=== PATIENT | female | born 1955 | race Caucasian/White ===

== ENCOUNTER 2024-02-28 11:49 | Emergency (ER) | payer MEDICARE, SELFPAY ==
--- NOTE | ~2024-02-28 | CT_ITS ---
EXAMINATION: CT abdomen pelvis wo con DATE: 02/28/2024 13:18 INDICATION: Left abdominal pain. Nausea. TECHNIQUE: Computed tomography (CT) of the abdomen and pelvis was performed without intravenous contr ast. Automated exposure control and iterative reconstruction technique were employed. The dose-length product was 270.53 mGy-cm. COMPARISON: None. FINDINGS: The visualized portions of lung bases demonstrate mild atelectasis. No pleural effusion. Th e heart size is normal. No pericardial effusion. The liver and gallbladder are normal. There are gall stones in the gallbladder, which is normal in size. The pancreas and adrenal glands are normal. There is cortical thinning of right kidney. There is a 12 mm cyst in right kidney. There is mild left hydr onephrosis and hydroureter. There is a 3 mm stone at left ureterovesicular junction. There is diverti culosis of the colon without evidence of diverticulitis. There are no dilated loops of bowel. The farooq endix is normal. There are no pathologically enlarged lymph nodes. There is no free intraperitoneal f luid. There is severe lower lumbar spondylosis. IMPRESSION: 1. 3 mm stone at left ureterovesicular junction with mild left hydronephrosis and hydroureter. Reviewed, dictated and finalized at location A. IMPRESSION: 1. 3 mm stone at left ureterovesicular junction with mild left hydronephrosis a nd hydroureter.
[2024-02-28 11:51] VITALS: BP 151/73; PULSE 73; RESP 22; TEMP 36.2; O2SAT 98
--- NOTE | 2024-02-28 11:51 | ED.GENADULT ---
HPI - General Adult General Chief complaint: Urogenital-Female Stated complaint: burning when urinating Time Seen by Provider: 02/28/24 11:51 Source: patient and family Mode of arrival: ambulatory Limitations: no limitations History of Present Illness HPI narrative: 68-year-old white female is burning and urinary frequency since yesterday and suprapubic pain that radiates around to the her left side. She has had some nausea without vomiting she has a history of amyloidosis AFib with ablation now in sinus rhythm on Eliquis, history of stroke and CHF. Denies any back pain or pain elsewhere. Been eating and drinking fine stooling fine walking talking seeing hearing fine. Has had some swelling in her lower extremities that she normally has and she has Lasix to take as needed. Denies any other complaints Related Data Allergies Allergy/AdvReac Type Severity Reaction Status Date / Time No Known Allergies Allergy Verified 02/28/24 13:41 Review of Systems Review of Systems: All systems reviewed & are unremarkable except as noted in HPI and below Exam Narrative: White female patient with no apparent distress.? Head normocephalic, atraumatic.? Eyes conjunctiva pink sclera nonicteric.? Extraocular movements are intact.? Ears externally normal.? Oropharynx is clear with moist mucous membranes without exudates.? Neck is supple nontender no lymphadenopathy.? Back is nontender.? Lungs are clear.? Heart is regular rate and rhythm without murmurs gallops or rubs.? Chest wall nontender. Abdomen is soft and nontender no hepatosplenomegaly or masses no CVA tenderness no abdominal bruits.? Extremities no cyanosis clubbing or edema.? Skin is warm and dry without rashes or lesions.? Neurological patient is alert and oriented x4.? Motor and sensory grossly intact.? Gait is normal. Course Course Emergency Course: 1305 p.m. patient started having chilling and left lower quadrant pain radiating around her back. She would be given fentanyl 50 IV and 4 Zofr[address] IV get a CT abdomen pelvis without contrast check labs CBC CMP lipase lactic acid Vital Signs Vital signs: Vital Signs Temperature 36.2 C L 02/28/24 11:51 Pulse Rate 73 02/28/24 11:51 Respiratory Rate 22 H 02/28/24 11:51 Blood Pressure 151/73 H 02/28/24 11:51 Pulse Oximetry 98 02/28/24 11:51 Oxygen Delivery Room Air 02/28/24 11:51 Temperature 37.0 C 02/28/24 14:40 Pulse Rate 79 02/28/24 15:40 Respiratory Rate 18 02/28/24 15:40 Blood Pressure 142/52 H 02/28/24 15:40 Pulse Oximetry 98 02/28/24 15:40 Oxygen Delivery Room Air 02/28/24 15:40 Medical Decision Making MDM Narrative Medical decision making narrative: Patient was placed in Room # 2 with her son History and physical was performed. Blood and Urine culture sent UA : Urine shows +1 bacteria 11-20 rbc's only 0-3 wbc's positive nitrite +3 glucose and +2 protein CBC hemoglobin 14.6 and hematocrit 44.7 rest of CBC was normal. CMP : BUN 23 creatinine 1.8 GFR 28 Osmo 300 alk phos 210 rest of CMP was normal Lactic acid: 3.3, and lipase was normal CT abdomen pelvis without contrast:: The visualized portions of lung bases demonstrate mild atelectasis. No pleural effusion. The heart size is normal. No pericardial effusion. The liver and gallbladder are normal. There are gallstones in the gallbladder, which is normal in size. The pancreas and adrenal glands are normal. There is cortical thinning of right kidney. There is a 12 mm cyst in right kidney. There is mild left hydronephrosis and hydroureter. There is a 3 mm stone at left ureterovesicular junction. There is diverticulosis of the colon without evidence of diverticulitis. There are no dilated loops of bowel. The appendix is normal. There are no pathologically enlarged lymph nodes. There is no free intraperitoneal fluid. There is severe lower lumbar spondylosis. IMPRESSION: 1. 3 mm stone at left ureterovesicular junction with mild left h
[2024-02-28] MEDS: ONDANSETRON HCL ODT 4 MG TABLET PO (12:08)
[2024-02-28 12:19] LABS: Bilirubin Urine Negative (Negative); Blood Urine Trace-intact (Negative); Glucose Urine UA 3+ (Negative); Ketones Urine Trace (Negative); Leukocyte Esterase Ur Negative LEU/UL (Negative); Nitrate Urine Positive (Negative); Protein Urine 2+ (Negative)
[2024-02-28 12:28] LABS: Add Urine Microscopic? YES; Appearance Urine Sl Cloudy (Clear); Bacteria Urine 1+ /hpf; Color Urine Dark Orange (Yellow); Squamous Epithelial Cell Urine Many /hpf (Few); WBC Urine 0-3 /hpf (0-3)
[2024-02-28] MEDS: CIPROFLOXACIN 250 MG TABLET PO (13:34)
[2024-02-28] MEDS: fentaNYL CITRATE INJ (*CRX) 100 MCG/2 ML VIAL 50 MCG IV PUSH (13:35)
[2024-02-28] MEDS: ONDANSETRON INJ 4 MG/2 ML VIAL IV PUSH (13:35)
[2024-02-28 13:36] LABS: Hematocrit 44.7 % (35.0-42.0); Hemoglobin 14.6 g/dL (11.7-13.8); Mean Corpuscular HGB Conc 32.7 g/dL (32-36); Mean Corpuscular Hemoglobin 31.3 pg (27.0-31.0); Mean Corpuscular Volume 95.7 fL (78.0-102.0); Mean Platelet Volume 9.7 fl (9.2-11.8); Platelet Count Result 192 K/mm3 (150-420); Red Blood Count 4.67 M/mm3 (4.20-5.40); Red Cell Distribution Width 14.8 % (11.6-14.4); White Blood Count 6.7 K/mm3 (4.8-10.8)
[2024-02-28] MEDS: Please add drug allergy info to patient profile. 1 EACH XX (13:41)
[2024-02-28 13:45] VITALS: BP 132/66; PULSE 75; RESP 18; TEMP 36.9; O2SAT 97
[2024-02-28 13:52] LABS: Alanine Aminotransferase 38 U/L (14-59); Albumin Level 3.7 g/dL (3.4-5.0); Alkaline Phosphatase 210 U/L (46-116); Anion Gap 11 mmol/L (4-12); Aspartate Amino Transferase 22 U/L (15-37); Bilirubin,Total 0.6 mg/dL (0.00-1.00); Blood Urea Nitrogen 23 mg/dL (7-18); Calcium 9.1 mg/dL (8.5-10.1); Carbon Dioxide 24 mmol/L (21-32); Chloride 108 mmol/L (98-108); Estimated CRCL calculation 24 ml/min; Estimated Glomerular Filt Rate 28; Glucose 109 mg/dL (70-99); Lipase 48 U/L (16-77); Osmolality Calculated 300 mOsm/kg (285-295); Potassium 3.9 mmol/L (3.5-5.1); Sodium 143 mmol/L (136-145); Total Protein 6.9 g/dL (6.4-8.2)
[2024-02-28 13:57] LABS: Lactic Acid Reflex 3.3 mmol/L (0.4-2.0)
[2024-02-28 14:40] VITALS: BP 130/53; PULSE 84; RESP 18; TEMP 37; O2SAT 99
[2024-02-28] MEDS: SODIUM CHLORIDE 0.9% IV 1,000 ML 999 ML IV CONT (14:43)
[2024-02-28 15:40] VITALS: BP 142/52; PULSE 79; RESP 18; O2SAT 98
--- NOTE | 2024-02-28 16:18 | PC.NURSE ---
pt up ambulating to bathroom with son, ambulating back to room, pt became weak and tired, needed assistance to return to room.
--- NOTE | 2024-02-28 16:23 | PC.NURSE ---
report to Bucky, ems staff. Pt loaded to ems cot. stable and alert.
[2024-02-28 16:34] LABS: Reflex Lactic Acid Yes or No Add Lactic
--- NOTE | 2024-03-01 13:46 | PC.NURSE ---
Addendum entered by Ross Avalos RN 03/01/24 13:49: PRELIMINARY BLOOD CULTURE RESULTS X2:ISOLATE 1: GRAM NEGATIVE BACILLI ISOLATED FROM ANAEROBIC BOTTLES ONLY. MEDICAL SECRETARY RECEPTIONIST IS AWARE. Original Note: PRELIMINARY URINE CULTURE RESULTS: ISOLATE 1: 10,000-49,000 CFU/ML OF ESCHERICHIA COLI PRELIMINARY BLOOD CULTURE RESULTS X1 ISOLATE 1: GRAM NEGATIVE BACILLI ISOLATED FROM ANAEROBIC BOTTLE ONLY. RESULTS CALLED TO CHRISS JOHNSON AT [facility] ICU, SHE IS AWARE OF RESULTS.
--- NOTE | 2024-03-02 12:36 | PC.NURSE ---
NO CHANGE IN PRELIMINARY BLOOD CULTURE RESULTS, SPOKE WITH RN YESTERDAY AT [facility] AND SHE IS AWARE. FINAL URINE CULTURE RESULTS: ISOLATE 1 10, 000-49,000 CFU/ML OF ESCHERICIA COLI, NO CHANGE FROM YESTERDAY, RN AWARE AT [facility].
--- NOTE | 2024-03-07 17:54 | PC.NURSE ---
FINAL BLOOD CULTURE RESULTS: ISOLATE 1: ESCHERICHIA COLI FROM ANAEROBIC BOTTLE ONLY. PER DR MAZARIEGOS AND C&S NO CHANGE IN TX NEEDED.
== END 2024-02-28 16:33 | disposition short-term general hospital (02) ==
PROVIDERS: Emergency Provider Emergency Medicine
DX: N20.1 Calculus of ureter (principal); N39.0 Urinary tract infection, site not specified; I48.91 Unspecified atrial fibrillation; I50.9 Heart failure, unspecified
CPT/HCPCS: 36415; 74176; 80053; 81001; 83605; 83690; 85027; 87040; 87077; 87086; 87088; 87147; 87186; 96361; 96374; 96375; 99285; A9270; J2405; J3010; J7030

== ENCOUNTER 2024-02-28 18:36 | Inpatient (IN) | payer MEDICARE, SELFPAY ==
[2024-02-28] VITALS (27 sets, daily range): BP systolic 61–130; BP diastolic 26–66; PULSE 56–93; RESP 10–32; TEMP 36.7–39.6; O2SAT 94–100; BMI 26.5
--- NOTE | ~2024-02-28 | XR_ITS ---
EXAMINATION: XR chest port-a-cath/central Exam Date/Time: 02/28/2024 20:55 CDT HISTORY: line placement Comparison: None. RESULT: Lines, tubes, and devices: Right IJ central line terminating in the distal SVC. Lungs and pleura: Moderate diffuse interstitial opacities. Subsegmental left basilar airspace diseas e. Cardiomediastinal silhouette: Stable. Other: No acute osseous or upper abdominal finding. IMPRESSION: Right IJ central line terminating in the distal SVC. Moderate interstitial edema. Subsegmental basila r atelectasis/consolidation. Reviewed, dictated and finalized at location K. IMPRESSION: Right IJ central line terminating in the distal SVC. Moderate interstitial dara a. Subsegmental basilar atelectasis/consolidation.
--- NOTE | ~2024-02-28 | XR_ITS ---
EXAMINATION: XR retrograde pyelo w/stent LT DATE: 02/28/2024 20:25 CDT INDICATION: Left stone . TECHNIQUE: 12 fluoroscopic images of the left abdomen and pelvis were obtained during left retrograde pyelography with stent placement, performed by Jyoti Pichardo MD. I was not present during the procedure. Fluoroscopy exposure time was 28.2 seconds. Air Kerma 7.67 mGy. DAP [id number] mGym2. COMPARISON: CT abdomen pelvis, same date FINDINGS/IMPRESSION: Fluoroscopic documentation of left retrograde pyelography with stent placement. Please refer to the o perative note for complete procedural details . Reviewed, dictated and finalized at location K.
--- NOTE | 2024-02-28 17:47 | PM.IMHP ---
H&P: HPI History of Present Illness Date/Time: 02/28/24 17:47 Chief Complaint: Kidney stone Narrative: This is a 68-year-old female with a significant past medical history of amyloidosis, Afib s/p ablation, CVA, and CHF originally presenting to [facility] with nausea, suprapubic pain radiating around to her left side, urinary frequency, and dysuria. Workup in the hospital included an abdomen/ pelvis CT which showed a 3 mm stone at the left ureterovesicular junction with mild left hydronephrosis and hydroureter. Initial labs showed a normal white blood cell count of 6.7, hemoglobin 14.6, creatinine 1.80, EGFR 28, lactic acid 3.3, alk-phos 210, lipase 48. UA was obtained which shown slightly cloudy appearance, 2+ urine protein, 3+ urine glucose, trace urine ketone, trace urine blood, positive nitrate, 11-20 urine RBC, 1+ urine bacteria, many urine squamous epithelial cells. Urine and blood cultures were obtained and are pending. Patient was given 1 L of fluids and Cipro while in the ED at [facility]. ER physician at [place] called for direct admission to [facility] for urology workup. Urology was consulted and planned for patient to have cystoscopy in the morning initially. Upon arrival to [place], patient was noted to have a 103.2 temperature, respiratory rate 29, heart rate 103, altered mental status. Labs were redrawn and shown a creatinine of 1.80, EGFR 28, lactic acid increased to 5.0, AST 389, ALT 144, proBNP 4970. Considering patient meeting SIRS and Sepsis criteria, Urology was informed and changed plan to take patient for cystoscopy with stent placement today. Review of Systems Review of Systems: ROS unobtainable: Yes unobtainable due to mental status PMFSH Past Medical History Medical History Amyloidosis Atrial fibrillation CHF (congestive heart failure) Ureterolithiasis Surgical History Surgical History History of radiofrequency ablation procedure for cardiac arrhythmia Meds Home Medications and Allergies Allergies Allergy/AdvReac Type Severity Reaction Status Date / Time No Known Allergies Allergy Verified 02/28/24 19:19 Vital Signs Vital Signs - 24 hr 10/13/24 17:22 Temperature 102 F H Respiratory Rate 29 H Blood Pressure 130/64 Pulse Oximetry 94 H&P: Results Imaging abdomen/pelvis CT: Radiologist's impression: EXAMINATION: CT abdomen pelvis wo con DATE: 02/28/2024 13:18 INDICATION: Left abdominal pain. Nausea. TECHNIQUE: Computed tomography (CT) of the abdomen and pelvis was performed without intravenous contrast. Automated exposure control and iterative reconstruction technique were employed. The dose-length product was 270.53 mGy-cm. COMPARISON: None. FINDINGS: The visualized portions of lung bases demonstrate mild atelectasis. No pleural effusion. The heart size is normal. No pericardial effusion. The liver and gallbladder are normal. There are gallstones in the gallbladder, which is normal in size. The pancreas and adrenal glands are normal. There is cortical thinning of right kidney. There is a 12 mm cyst in right kidney. There is mild left hydronephrosis and hydroureter. There is a 3 mm stone at left ureterovesicular junction. There is diverticulosis of the colon without evidence of diverticulitis. There are no dilated loops of bowel. The appendix is normal. There are no pathologically enlarged lymph nodes. There is no free intraperitoneal fluid. There is severe lower lumbar spondylosis. IMPRESSION: 1. 3 mm stone at left ureterovesicular junction with mild left hydronephrosis and hydroureter. Reviewed, dictated and finalized at location A. Assessment and Plan Assessment and plan (1) Sepsis:
[2024-02-28] MEDS: SODIUM CHLORIDE 0.9% IV 1,000 ML 999 ML IV CONT (18:09)
[2024-02-28] MEDS: ACETAMINOPHEN 325 MG TABLET 650 MG PO (18:10)
[2024-02-28] MEDS: cefTRIAXone 2 GM/NS 100 ML 2 GM/100 ML BAG IVPB (18:10)
--- NOTE | 2024-02-28 18:29 | WPDURCON ---
Assessment and Plan Assessment and plan (1) Acute UTI: Code(s): N39.0 - Urinary tract infection, site not specified Status: Acute (2) Hydronephrosis with renal and ureteral calculous obstruction: Code(s): N13.2 - Hydronephrosis with renal and ureteral calculous obstruction Status: Acute (3) Ureterolithiasis: Code(s): N20.1 - Calculus of ureter Status: Acute Plan 68 yr old female with an obstructing left UVJ stone with hydronephrosis in setting of a fever and UTI. Discussed the options with the patient and her son. She elects to proceed to the OR tonight for cystoscopy and left stent placement. She understands the risks including but not limited to bleeding, infection, damage to the urinary tract, stent irritation, and risks of anesthesia. She understands she will need definitive stone surgery once infection resolves. Was started on rocephin here at [place]. Depending on her intraoperative and postoperative clinical status, she may require admission to the ICU. Urology Consult Note HPI Date Seen: 02/28/24 Requesting Physician: Alize Abreu MD Primary Care Provider: Koko Roque MD Consult Narrative Narrative: Lydia Gallego is a 68 year old female who presented to [place] ER with several days of UTI symptoms including dysuria and irritative voiding symptoms. She has been using over the counter AZO. She has not been on antibiotics. She has a history of amyloidosis and is currently on chemo, last dose in late 01/2024. CT at the outside ER showed 3 mm left UVJ stone with hydronephrosis. UA showed nitrites. Her wbc ct is normal but Cr was 1.8 and lactate was 3.3. She was transferred to [place] for stone management. On arrival to the floor, she spiked a fever of 102.9. No prior history of stones and no family history of stones. Review of Systems Review of Systems: All systems reviewed & are unremarkable except as noted in HPI and below [facility] Past Medical History Medical History (Updated 02/28/24 @ 18:37 by Jyoti Pichardo MD) Ureterolithiasis Meds Home Medications and Allergies Allergies Allergy/AdvReac Type Severity Reaction Status Date / Time No Known Allergies Allergy Verified 02/28/24 13:41 Vital Signs Vital Signs - 24 hr 02/28/24 17:22 02/28/24 18:10 02/28/24 18:20 Temperature 39.6 C H 39.6 C H 39.4 C H Pulse Rate 93 Respiratory Rate 29 H Blood Pressure 130/64 122/66 Pulse Oximetry 94 95 Exam Narrative: General: 68 yr old female in mild distress, A&Ox3 HEENT: Head normocephalic, atraumatic.? EOMI. Hearing intact to voice. Respirations: Even and unlabored respirations Abd: soft, ND : mild L CVAT Neuro: A&Ox3; grossly intact Results Labs 02/28/24 18:25 02/28/24 18:25 Labs: Reviewed labs from OSH. Wbc ct 6. Cr 1.8. Lactate 3.3. +UA. Pending urine and blood cultures. Imaging My impression: REviewed CT images. Has 3 mm obstructing left UVJ stone with hydronephrosis
[2024-02-28 18:32] LABS: Hematocrit 37.4 % (37.0-47.0); Hemoglobin 12.5 g/dL (12.0-15.0); Immature Platelet Fraction Pct 1.1 % (0.9-11.2); Mean Corpuscular HGB Conc 33.4 g/dl (32-36); Mean Corpuscular Hemoglobin 32.9 pg (26-34); Mean Corpuscular Volume 98.4 fl (80-100); Mean Platelet Volume 9.9 fl (7.4-10.4); Platelet Count Result 92 k/mm3 (150-375); White Blood Count 2.6 K/mm3 (4.5-10.0)
[2024-02-28 18:43] LABS: Alanine Aminotransferase 144 U/L (6-35); Albumin Level 3.1 g/dL (3.5-5.1); Alkaline Phosphatase 203 U/L (38-126); Anion Gap 11 mmol/L (4-12); Aspartate Amino Transferase 389 U/L (14-36); Bilirubin,Total 0.7 mg/dL (0.2-1.3); Blood Urea Nitrogen 23 mg/dL (7-17); Calcium 8.1 mg/dL (8.4-10.2); Carbon Dioxide 13 mmol/L (22-30); Chloride 115 mmol/L (98-107); Estimated Glomerular Filt Rate 28; Glucose 109 mg/dL (65-110); Potassium 3.5 mmol/L (3.4-5.0); Sodium 139 mmol/L (137-145)
[2024-02-28 18:52] LABS: NT Pro B Type Natriuretic Pept 4970 pg/mL (19.9-100)
[2024-02-28 19:13] LABS: Band Neutrophils Percent 11 % (0-6); Lymphocytes Absolute Manual 0.05 K/mm3 (1.1-4.5); Monocytes Absolute Manual 0.02 K/mm3 (0.1-0.90); Monocytes Percent Manual 1 % (3-9); Neutrophils Absolute Manual 2.52 K/mm3 (1.7-7.2); Neutrophils Percent Manual 86 % (46-73); Total Cells Counted 100
[2024-02-28 19:14] LABS: Anisocytosis 1+; Platelet Estimate Decreased (Adequate); Schistocytes None Seen
[2024-02-28] MEDS: LACTATED RINGERS 1,000 ML 30 ML IV CONT ×2 (19:37→20:50)
--- NOTE | 2024-02-28 19:50 | SUR.PREOP ---
1914- PT BROUGHT DOWN TO PACU AREA. PT TO GO INTO SURGERY FOR A CYSTO AND LEFT STENT PLACEMENT. PT AOX3. DENIES PAIN AT THIS TIME.TEMP: 101.6, HR: 84, BP- 84/45 (, ON ROOM AIR AT 97%. DR. ANGULO AT BESIDE. PT RESTING. 1929- WHEN BOLUS COMPLETED . STATED A 2ND BOLUS. ANESTHESIA IN PACU AND SURGEON. PT AOX3. HR- 79, RR-27. DENIES PAIN AT THIS TIME. LEFT ARM PIV WNL.
--- NOTE | 2024-02-28 20:21 | WPDANESEPPF ---
Anes - Initial Pre Proc Eval Procedure: Operation Date: 02/28/24 20:00 Proposed Procedures p Cystoscopy, Left Ureteral Stent Placement(Left) - Jyoti Pichardo MD Date/Time: 02/28/24 20:21 Surgeon: Alize Abreu MD Pre Op Diagnosis: Kidney Stone Patient Data Age: 68 Gender: F Height: Weight: Last Vital Signs Temp 38.7 C H 02/28/24 19:15 Pulse 84 02/28/24 19:15 Resp 28 H 02/28/24 19:15 BP 84/45 L 02/28/24 19:15 Pulse Ox 97 02/28/24 19:15 O2 Del Method Room Air 02/28/24 19:15 Allergies Allergy/AdvReac Type Severity Reaction Status Date / Time No Known Allergies Allergy Verified 02/28/24 19:19 Laboratory Tests 02/28/24 02/28/24 18:25 18:26 WBC 2.6 L K/mm3 (4.5-10.0) RBC 3.80 L M/mm3 (4.2-5.4) Hgb 12.5 g/dL (12.0-15.0) Hct 37.4 % (37.0-47.0) MCV 98.4 fl (80-100) MCH 32.9 pg (26-34) MCHC 33.4 g/dl (32-36) RDW 15.0 H % (11.5-14.5) Plt Count 92 L k/mm3 (150-375) MPV 9.9 fl (7.4-10.4) Immature Gran % (Auto) Not Reportable Neut % (Auto) Not Reportable Lymph % (Auto) Not Reportable [place] % (Auto) Not Reportable Eos % (Auto) Not Reportable Baso % (Auto) Not Reportable Lymph # (Auto) Not Reportable [place] # (Auto) Not Reportable Eos # (Auto) Not Reportable Baso # (Auto) Not Reportable Abs Immat Gran (auto) Not Reportable Absolute Neuts (auto) Not Reportable Absolute Nucleated RBC Not Reportable Total Counted 100 Neutrophils % (Manual) 86 H % (46-73) Band Neutrophils % 11 H % (0-6) Lymphocytes % (Manual) 2.0 L % (18-44) Monocytes % (Manual) 1 L % (3-9) Nucleated RBC % Not Reportable Abs Neuts (Manual) 2.52 K/mm3 (1.7-7.2) Abs Lymphs (Manual) 0.05 L K/mm3 (1.1-4.5) Abs Monocytes (Manual) 0.02 L K/mm3 (0.1-0.90) Platelet Estimate Decreased (Adequate) % Immature Plt Fraction 1.1 % (0.9-11.2) Anisocytosis 1+ Schistocytes None seen Sodium 139 mmol/L (137-145) Potassium 3.5 mmol/L (3.4-5.0) Chloride 115 H mmol/L (98-107) Carbon Dioxide 13 L mmol/L (22-30) Anion Gap 11 mmol/L (4-12) BUN 23 H mg/dL (7-17) Creatinine 1.80 H mg/dL (0.7-1.0) Estim Creat Clear Calc Not Reportable Estimated GFR 28 L (59 - ) Glucose 109 mg/dL (65-110) Lactic Acid 5.0 H* mmol/L (0.7-2.0) Calcium 8.1 L mg/dL (8.4-10.2) Total Bilirubin 0.7 mg/dL (0.2-1.3) AST 389 H U/L (14-36) ALT 144 H U/L (6-35) Alkaline Phosphatase 203 H U/L (38-126) NT-Pro-B Natriuret Pep 4970 H pg/mL (19.9-100) Total Protein 5.0 L g/dL (6.3-8.2) Albumin 3.1 L g/dL (3.5-5.1) Patient hx anesthesia problems: none Family hx anesthesia problems: none Results Review: All pre-operative results and documents have been reviewed as part of the pre-operative evaluation. [facility] Past Medical History Medical History Amyloidosis Atrial fibrillation CHF (congestive heart failure) Ureterolithiasis Surgical History Surgical History History of radiofrequency ablation procedure for cardiac arrhythmia Anes - Eval Final PreProcedure Day of Procedure 02/28/24 20:21 Patient weight: overweight Heart: regular rate and rhythm Lungs: clear to auscultation Airway: Mallampati scale class III Neurological: alert and oriented Last oral intake: >/= 8 hours ASA classification: IV Emergent: yes Anesthetic plan: proceed Anesthesia type and monitoring: general LMA, standard monitoring and invasive monitoring central venous line Results Review: All p
--- NOTE | 2024-02-28 20:39 | P.OP_ITS ---
Procedure Note - Detailed Date of Procedure 02/28/24 Pre-op Diagnosis obstructing left UVJ stone with urosepsis Post-op Diagnosis Same Procedure Performed cystoscopy, left retrograde pyelogram and placement of left 6fr VL stent Surgeon Jyoti Pichardo MD Anesthesia General (LMA) Indications 68 year old female transferred from [place] with obstructing 3 mm L UVJ stone with elevated lactate. On arrival, she was febrile. We discussed proceeding to the OR for cystoscopy and left stent placement with plans for definitive stone surgery once infection resolves. I was in communication with hospitalist, anesthesia, and thermal cutting machine operator about her clinical condition with plans to admit her to ICU postoperatively. Description of Procedure Patient was correctly identified and informed consent was obtained. She was brought to the OR and formal timeout was performed. General anesthesia was induced via LMA. She had already received IV antibiotics. She was placed in the dorsal lithotomy position, prepped and draped in a sterile fashion. A rigid cystoscope was inserted through the urethra into the bladder. There were no suspicious masses or tumors. The left UO was intubated with a sensor wire which was advanced up into the left kidney. An 8fr coaxial dilator was then advanced. A very gentle retrograde pyelogram was performed to delineate the renal anatomy. She was noted to have mild hydronephrosis. A 6fr variable length stent was placed under fluoroscopic guidance with a curl in the renal pelvis and another curl in the bladder. A 16 fr quinonez was placed. At this point, anesthesia took over and placed a central line. Implants 6fr VL stent Estimated Blood Loss 5 Drains Yes (16 fr quinonez) Condition Other (guarded)
--- NOTE | 2024-02-28 20:39 | SUR.OPER ---
Central line placed in OR by Dr. Khoi MDA following cystoscopy procedure by Dr. Pichardo.
--- NOTE | 2024-02-28 20:49 | WPDANESCVCPN ---
Anes - Cent Venous Cath Note Consent: I have discussed with the patient/family/POA, the non-emergent placement of a central venous catheter, including its clinical necessity/indication and associated potential risks and complications. The patient/family/POA understand(s) and acknowledge(s) the need to proceed with central venous catheter insertion as an important element of the patient's clinical management given emergent patient conditions, temporal constraints may have precluded informed consent. Time-Out: A pre-procedural Time-Out was completed immediately before starting the procedure and confirmed: Patient Identification, Site, Procedure, Patient Position and the Availability of Requisite Equipment. Procedure Note Clinical Indications: urosepsis Hand hygiene/Aseptic technique: Hand hygiene procedures were performed. Aseptic technique was maintained throughout the procedure. Sterile barrier precautions: Maximal sterile barrier precautions, including use of a cap, mask, sterile gown, sterile gloves and a sterile full body drape. Site prep: chlorhexidine Skin anesthesia: placed under general anesthesia Bangladeshi: 7 Lumen: 3 Length (cm): 15 cm Depth of insertion (cm): 14 Closure/Dressing: suture, biopatch and tegaderm Complications: None immediately noted/suspected. Chest X Ray: Ordered/review to follow. Procedure comments: placed with ultrasound guidance RI no complications cxr ordered.
[2024-02-28] MEDS: NOREPINEPHRINE 8 MG/D5W 250 ML 8 MG/250 ML BAG 3.75 MG IV CONT (21:13)
--- NOTE | 2024-02-28 22:25 | ADMGEN ---
This patient, Lydia Gallego, was admitted to Intensive Care Unit-5 at 2207. Patient/family oriented to hospital policies and general routines including ID bracelet, bed and alarms, visiting hours, pain management, procedures, bathroom and other care routines, personal items, smoking policy, room service/diet, and visiting hours. Information on how to activate the Rapid Response Team has been discussed. Patient/Family are encouraged to report perceived risks to care and to ask questions if they do not understand what they are told or what they should do.
--- NOTE | 2024-02-28 22:53 | PC.NURSE ---
Updated Dr Price that patient is on floor. Discussed fluids received to this point, current Levophed dose and vitals and that [facility] said she woulod change antibiotics to meropenem. Vaso ordered at a set rate of 0.04 till Levophed is titrated below 5 and IVP hydrocortisone ordered q8h with first dose now. Med list also verified with [place] at [facility].
[2024-02-28] MEDS: HYDROCORTISONE SODIUM SUCCINATE 100 MG/2 ML VIAL IV PUSH (23:05)
[2024-02-28] MEDS: VASOPRESSIN INJ 100 UNITS in DEXTROSE 5% 95 ML IV CONT (23:30)
[2024-02-29] VITALS (83 sets, daily range): BP systolic 82–128; BP diastolic 31–103; PULSE 62–104; RESP 0–30; TEMP 36.4–36.6; O2SAT 92–100
--- NOTE | 2024-02-29 | ECHO_ITS ---
Patient Info Name: Lydia Gallego Age: 68 years : 1955 Gender: Female Ht: 64 in Wt: 155 lbs BSA: 1.80 m2 HR: 69 bpm BP: 105 / 54 mmHg Technical Quality: Fair Exam Date: 02/29/2024 10:03 AM Exam Location: Echo Lab Patient Status: Inpatient Admit Date: 02/28/2024 Staff Ordering Physician: Simona Allen APRN Berry Grower: Bonilla Morales RDCS Attending Provider: Alize Abreu MD Referring Physician: Tiffany HERNANDES; Exam Type: CA echo doppler color flow Study Info Indications I50.20 - Unspecified systolic (congestive) heart failure Complete two-dimensional, color flow and Doppler transthoracic echocardiogram is performed. Summary 1. Complete two-dimensional, color flow and Doppler transthoracic echocardiogram is performed. 2. Left ventricular chamber dimension is normal. 3. Left ventricular systolic function is normal, estimated at 60-65%. 4. The left ventricular diastolic function is grade IV diastolic dysfunction. 5. E/e' 18 is elevated. 6. Left atrial chamber dimension is mildly enlarged. 7. There is trace aortic valve regurgitation. 8. There is moderate mitral valve regurgitation. 9. There is moderate tricuspid valve regurgitation. 10. Mild pulmonary hypertension, estimated pulmonary arterial systolic pressure is 44 mmHg. 11. There is trace pulmonic regurgitation. Left Ventricle E/e' 18 is elevated. Left ventricular chamber dimension is normal. Left ventricular systolic function is normal, estimated at 60-65%. The left ventricular diastolic function is grade IV diastolic dysfunction. Right Ventricle Right ventricular chamber dimension is normal. Right ventricular systolic function is normal. Left Atria Left atrial chamber dimension is mildly enlarged. Right Atria Right atrial chamber dimension is normal. Aortic Valve The aortic valve is trileaflet. There is no aortic valve stenosis. There is trace aortic valve regurgitation. Pulmonic Valve There is trace pulmonic regurgitation. Mitral Valve There is no mitral valve stenosis. There is moderate mitral valve regurgitation. Tricuspid Valve There is moderate tricuspid valve regurgitation. Mild pulmonary hypertension, estimated pulmonary arterial systolic pressure is 44 mmHg. Pericardium/Pleural There is no pericardial effusion. Inferior Vena Cava Normal inferior vena cava with >50% collapse upon inspiration consistent with normal right atrial pressure, 5 mmHg. Aorta The aortic root size at the sinus of Valsalva is normal. Left Ventricular Outflow Tract Name Value Normal LVOT 2D LVOT Diameter 2.0 cm LVOT Doppler LVOT Peak Gradient 4 mmHg LVOT Mean Gradient 1 mmHg LVOT VTI 15 cm LVOT VTI/AV VTI Ratio 0.9 LVOT Stroke Volume 45 ml LVOT CO 3.2 l/min LVOT CI 1.8 l/min/m2 Pulmonic Valve Name Value Normal PV Doppler --
[2024-02-29 00:13] LABS: Lactic Acid Reflex 1.9 mmol/L (0.7-2.0)
[2024-02-29] MEDS: MEROPENEM 1 GM/NS 100 ML 1 GM/100 ML BAG IVPB ×3 (00:26→23:26)
[2024-02-29 01:16] LABS: MRSA (PCR) NOT DETECTED (NOT DETECTE)
[2024-02-29 05:56] LABS: Hematocrit 35.7 % (37.0-47.0); Hemoglobin 12.1 g/dL (12.0-15.0); Immature Platelet Fraction Pct 2.8 % (0.9-11.2); Mean Corpuscular HGB Conc 33.9 g/dl (32-36); Mean Corpuscular Hemoglobin 32.8 pg (26-34); Mean Corpuscular Volume 96.7 fl (80-100); Mean Platelet Volume 9.9 fl (7.4-10.4); Platelet Count Result 95 k/mm3 (150-375); Red Blood Count 3.69 M/mm3 (4.2-5.4); Red Cell Distribution Width 15.6 % (11.5-14.5); White Blood Count 32.6 K/mm3 (4.5-10.0)
[2024-02-29 06:03] LABS: Lactic Acid Reflex 2.1 mmol/L (0.7-2.0)
[2024-02-29 06:04] LABS: Alanine Aminotransferase 135 U/L (6-35); Albumin Level 2.6 g/dL (3.5-5.1); Alkaline Phosphatase 106 U/L (38-126); Anion Gap 6 mmol/L (4-12); Aspartate Amino Transferase 180 U/L (14-36); Bilirubin,Total 0.7 mg/dL (0.2-1.3); Blood Urea Nitrogen 24 mg/dL (7-17); Calcium 7.6 mg/dL (8.4-10.2); Carbon Dioxide 20 mmol/L (22-30); Chloride 113 mmol/L (98-107); Estimated CRCL calculation 27 ml/min; Estimated Glomerular Filt Rate 32; Glucose 106 mg/dL (65-110); Potassium 3.8 mmol/L (3.4-5.0); Sodium 139 mmol/L (137-145)
[2024-02-29 06:34] LABS: Band Neutrophils Percent 21 % (0-6); Lymphocytes Absolute Manual 0.32 K/mm3 (1.1-4.5); Monocytes Absolute Manual 0.65 K/mm3 (0.1-0.90); Monocytes Percent Manual 2 % (3-9); Neutrophils Absolute Manual 31.62 K/mm3 (1.7-7.2); Neutrophils Percent Manual 76 % (46-73); Platelet Estimate Decreased (Adequate); Schistocytes None Seen; Total Cells Counted 100
[2024-02-29] MEDS: HYDROCORTISONE SODIUM SUCCINATE 100 MG/2 ML VIAL IV PUSH ×3 (06:39→21:05)
[2024-02-29] MEDS: NOREPINEPHRINE 8 MG/D5W 250 ML 8 MG/250 ML BAG 20.63 MG IV CONT (07:47)
--- NOTE | 2024-02-29 08:38 | WPDCNINT ---
Assessment and Plan Assessment and plan (1) Septic shock: Code(s): A41.9 - Sepsis, unspecified organism; R65.21 - Severe sepsis with septic shock Status: Acute Assessment and Plan: Septic shock secondary to obstructive stone and UTI Blood and urine cultures have been sent and are pending Continue meropenem to cover for possible ESBL Patient has received DC amount of IV fluids and has history of congestive heart failure and has l lower extremity edema Will hold further crystalloids Continue vasopressin and Levophed infusion to maintain mean arterial pressure Continue hydrocortisone stress dose at this time Obtain echocardiogram Will add 25% albumin (2) CHF (congestive heart failure): Code(s): I50.9 - Heart failure, unspecified Status: Acute Assessment and Plan: Patient has history of CHF. Will obtain echocardiogram. Conservative IV fluids. (3) Transaminitis: Code(s): R74.01 - Elevation of levels of liver transaminase levels Status: Acute Assessment and Plan: Secondary to shock liver. Levels are improving. Monitor. (4) Acute kidney injury: Code(s): N17.9 - Acute kidney failure, unspecified Status: Acute Assessment and Plan: Secondary to obstructive kidney stone and hydronephrosis along with sepsis and shock. Patient has received IV fluids and now off. Continue to maintain mean arterial pressure with pressors. Creatinine slightly improved to 1.6. Monitor urine output electrolytes and creatinine Check CK level Check urine electrolytes Will consult nephrology if renal function does not improve with current management. (5) Hydronephrosis with renal and ureteral calculous obstruction: Code(s): N13.2 - Hydronephrosis with renal and ureteral calculous obstruction Status: Acute Assessment and Plan: Status post stent placement (6) Metabolic acidosis: Code(s): E87.20 - Acidosis, unspecified Status: Acute Assessment and Plan: Bicarb ordered (7) Atrial fibrillation: Code(s): I48.91 - Unspecified atrial fibrillation Status: Acute Assessment and Plan: Patient has history of AFib status post ablation. Continue amiodarone and Eliquis Plan DVT prophylaxis -SCDs and Eliquis Nutrition -heart healthy diet Code Status - Full Code Total Critical Care Time - 35 minutes Due to a high probability of clinically significant, life threatening deterioration, the patient required my highest level of preparedness to intervene emergently and I personally spent this critical care time directly and personally managing the patient. This critical care time included obtaining a history; examining the patient; pulse oximetry; ordering and review of studies; arranging urgent treatment with development of a management plan; evaluation of patient's response to treatment; frequent reassessment; and discussions with other providers. It was exclusive of separately billable procedures and treating other patients and teaching time. Please see Assessment and Plan section and the rest of the note for further information on patient assessment and treatment Presales Consultant Consult Note Consult date: 02/29/24 HPI: Lydia Gallego is a 68 year old female with significant past medical history of amyloidosis, Afib s/p ablation on anticoagulation, CVA, and CHF originally presenting to [facility] yesterday with nausea, suprapubic pain radiating around to her left side, urinary frequency, and dysuria. Patient states that she has had dysuria but was mild for 2 days prior to yesterday's presentation. Yesterday after work when she went home she started having suprapubic pain which radiated to her back, pain was sharp 10/10 continuous with no aggravating or relieving factors. Patient presented to the ER. Workup in the hospital included an abdomen/ pelvis CT which showed a 3 mm stone at the left ureterovesicular junction with mild left h
[2024-02-29 08:52] LABS: Reflex Lactic Acid Yes or No Add Lactic
[2024-02-29 09:19] LABS: Creatine Kinase 119 U/L (30-135)
[2024-02-29] MEDS: ALBUMIN HUMAN 25% 25 GM/100 ML 100 ML IVPB ×4 (09:30→23:26)
[2024-02-29] MEDS: SODIUM BICARBONATE TAB 650 MG TABLET PO ×2 (09:33→17:09)
[2024-02-29] MEDS: CALCIUM/VITAMIN D 500 MG/5 MCG (200 I.U.) TABLET PO ×2 (09:34→17:09)
[2024-02-29] MEDS: APIXABAN 5 MG TABLET PO ×2 (09:34→20:08)
[2024-02-29] MEDS: AMIODARONE HCL 200 MG TABLET PO (09:34)
[2024-02-29 09:51] LABS: Lactic Acid 2.3 mmol/L (0.7-2.0)
[2024-02-29] MEDS: CALCIUM GLUC 2,000 MG/NS 100ML 2,000 MG/100 ML BAG 100 MG IVPB (10:00)
[2024-02-29 10:05] LABS: Creatinine Urine 87.3 mg/dL
[2024-02-29 10:13] LABS: Sodium Urine Random 47 meq/L
--- NOTE | 2024-02-29 11:18 | WPDUROPN2 ---
Progress Note: A&P Assessment and Plan (1) Hydronephrosis with renal and ureteral calculous obstruction: Code(s): N13.2 - Hydronephrosis with renal and ureteral calculous obstruction Status: Acute (2) Septic shock: Code(s): A41.9 - Sepsis, unspecified organism; R65.21 - Severe sepsis with septic shock Status: Acute Plan Continue ICU care. Urine and blood cultures pending. Continue broad-spectrum antibiotics. Definitive stone management once acute situation resolved Subjective Subjective Date/Time Seen: 02/29/24 11:18 Review of Systems Review of Systems: Continues to be in ICU. States she feels improved Is on pressors and broad-spectrum antibiotics Exam Narrative: Resting comfortably. Suarez catheter in place Objective Data Vital Signs Vital Signs: Vital Signs - 24 hr 02/28/24 17:22 02/28/24 18:10 02/28/24 18:20 Temperature 103.2 F H 103.2 F H 102.9 F H Pulse Rate 93 Respiratory Rate 29 H Blood Pressure 130/64 122/66 Pulse Oximetry 94 95 Oxygen Delivery Oxygen Flow Rate Fraction of Inspired Oxygen 02/28/24 19:15 02/28/24 20:20 02/28/24 21:13 Temperature 101.6 F H Pulse Rate 84 69 75 Respiratory Rate 28 H 30 H Blood Pressure 84/45 L 61/41 L 75/62 L Pulse Oximetry 97 97 Oxygen Delivery Room Air Room Air Oxygen Flow Rate Fraction of Inspired Oxygen 02/28/24 20:50 02/28/24 21:05 02/28/24 21:20 Temperature 99.2 F Pulse Rate 56 L 69 75 Respiratory Rate 10 L 25 H 21 H Blood Pressure 66/39 L 75/62 L 83/42 L Pulse Oximetry 100 100 100 Oxygen Delivery Simple Face Mask Simple Face Mask Simple Face Mask Oxygen Flow Rate 10 10 10 Fraction of Inspired Oxygen 02/28/24 21:35 02/28/24 21:50 02/28/24 21:40 Temperature Pulse Rate 75 73 70 Respiratory Rate 21 H 18 Blood Pressure 74/45 L 79/43 L 84/46 L Pulse Oximetry 100 100 Oxygen Delivery Nasal Cannula Nasal Cannula Oxygen Flow Rate 3 2 Fraction of Inspired Oxygen 02/28/24 21:50 02/28/24 21:55 02/28/24 22:00 Temperature Pulse Rate 72 72 73 Respiratory Rate Blood Pressure 79/43 L 81/44 L 77/65 L Pulse Oximetry Oxygen Delivery Oxygen Flow Rate Fraction of Inspired Oxygen 02/28/24 22:05 02/28/24 22:10 02/28/24 22:45 Temperature Pulse Rate 75 75 74 Respiratory Rate Blood Pressure 79/51 L 84/51 L 85/50 L Pulse Oximetry Oxygen Delivery Oxygen Flow Rate Fraction of Inspired Oxygen 02/28/24 22:51 02/28/24 22:30 02/28/24 23:14 Temperature 98.1 F Pulse Rate 73 74 76 Respiratory Rate 19 Blood Pressure 87/45 L 86/51 L 85/40 L Pulse Oximetry 97 Oxygen Delivery Oxygen Flow Rate Fraction of Inspired Oxygen 02/28/24 23:30 02/28/24 23:31 02/29/24 00:02 Temperature Pulse Rate 76 75 72 Respiratory Rate Blood Pressure 92/51 L 92/51 L 83/45 L Pulse Oximetry Oxygen Delivery Oxygen Flow Rate Fraction of Inspired Oxygen 02/29/24 00:24 02/29/24 00:48 02/29/24 01:01 Temperature Pulse Rate 73 72 72 Respiratory Rate Blood Pressure 94/53 L 100/42 L 96/58 L Pulse Oximetry Oxygen Delivery Oxygen Flow Rate Fraction of Inspired Oxygen 02/29/24 01:24 02/29/24 00:00 02/29/24 02:00 Temperature Pulse Rate 72 71 62 Respiratory Rate Blood Pressure 92/59 L 83/45 L 94/63 L Pulse Oximetry Oxygen Delivery Oxygen Flow Rate Fraction of Inspired Oxygen 02/29/24 01:45 02/29/24 02:15 02/29/24 02:24 Temperature Pulse Rate 73 70 72 Respiratory Rate Blood Pressure 114/77 102/62 93/42 L Pulse Oximetry Oxygen Delivery Oxygen Flow Rate Fraction of Inspired Oxygen 02/28/24 22:30 02/28/24 22:45 02/28/24 22:47 Temperature Pulse Rate 74 74 75 Respiratory Rate 20 27 H 32 H Blood Pressure 86/51 L 77/57 L 85/26 L Pulse Oximetry 96 96 97 Oxygen Delivery Oxygen Flow Rate Fraction of Inspired Oxygen 02/28/24 22:48 02/15
[2024-02-29] MEDS: HYDROcodone/acetaminophen (*CRX) 5-325 MG TABLET 1 TAB PO ×2 (11:52→20:08)
--- NOTE | 2024-02-29 12:39 | P.PN_ITS ---
Progress Note: A&P Assessment and Plan (1) Sepsis: Code(s): A41.9 - Sepsis, unspecified organism Status: Acute Assessment and Plan: 02/28/24: * meeting sepsis criteria elevated lactate of 5.0, temp of 103.2?, respiratory rate of 29, tachycardia 103, known UTI, acute kidney injury, transaminitis, pancytopenia * 1 L of normal saline while in the ED at [facility] and repeated 1 L bolus upon arrival at [facility] * blood and urine cultures were obtained and are pending * patient was given a dose of Cipro while at [facility] and we switched to Rocephin 2 g here at [facility] * white blood cell count was initially 6.7 now down to 2.6 * CT of the abdomen pelvis show a 3 mm stone at the left ureterovesicular junction with mild left hydronephrosis and hydroureter * * 68 y/o female with hydronephrosis and UTI 2/2 to kidney stones, patient was seen by her urologist, was taken OR and had VL stent placed then patient went to septic shock transferred to ICU and started on some IVF as patient has history of CHF and placed her on vasopressin and Levophed to maintain mean arterial pressure, patient normally has soft BP, for UTI patient is started on broad spectrum Abx witn meropenem, will follow up on urine and blood culture, patient is clinically stable will follow the patient with the mix house tender. (2) Hydronephrosis with renal and ureteral calculous obstruction: Code(s): N13.2 - Hydronephrosis with renal and ureteral calculous obstruction Status: Acute Assessment and Plan: 02/28/24: * CT of the abdomen pelvis show a 3 mm stone at the left ureterovesicular junction with mild left hydronephrosis and hydroureter * urology consulted * Plan for cystoscopy today with stent placement to the left ureter * continue Rocephin 2 g (3) Ureterolithiasis: Code(s): N20.1 - Calculus of ureter Status: Inactive Assessment and Plan: see above (4) Acute UTI: Code(s): N39.0 - Urinary tract infection, site not specified Status: Inactive Assessment and Plan: 02/28/24: * likely secondary to obstructing kidney stone * UA showing slightly cloudy appearance, 2+ urine protein, 3+ urine glucose, trace urine ketone, trace urine blood, positive nitrate, 2.0 urine urobilinogen, 11-20 urine RBC, many urine squamous epithelial cells, 1+ urine bacteria. * Urine and blood cultures were obtained and pending * patient given a dose of Cipro at [facility] * changed to Rocephin 2 g upon arrival [facility] (5) Altered mental status: Code(s): R41.82 - Altered mental status, unspecified Status: Acute Assessment and Plan: 02/28/24: * likely secondary to obstructing kidney stone, UTI, severe sepsis * continue neuro checks (6) Acute kidney injury: Code(s): N17.9 - Acute kidney failure, unspecified Status: Acute Assessment and Plan: 02/28/24: * likely secondary to sepsis with obstructing kidney stone * creatinine 1.80, EGFR 28 * unsure baseline creatinine * continue to trend * urology consulted (7) Transaminitis: Code(s): R74.01 - Elevation of levels of liver transaminase levels Status: Acute Assessment and Plan: 02/28/24: * likely secondary to severe sepsis * AST 389, ALT 144 * total bili within range, 0.7 * continue to trend (8) Pancytopenia: Code(s): D61.818 - Other pancytopenia Status: Acute Assessment and Plan: 02/28/24: * likely due to severe sep
--- NOTE | 2024-02-29 12:39 | WPDPN ---
Progress Note: A&P Assessment and Plan (1) Sepsis: Code(s): A41.9 - Sepsis, unspecified organism Status: Acute Assessment and Plan: 02/28/24: meeting sepsis criteria elevated lactate of 5.0, temp of 103.2?, respiratory rate of 29, tachycardia 103, known UTI, acute kidney injury, transaminitis, pancytopenia 1 L of normal saline while in the ED at [facility] and repeated 1 L bolus upon arrival at [facility] blood and urine cultures were obtained and are pending patient was given a dose of Cipro while at [facility] and we switched to Rocephin 2 g here at [facility] white blood cell count was initially 6.7 now down to 2.6 CT of the abdomen pelvis show a 3 mm stone at the left ureterovesicular junction with mild left hydronephrosis and hydroureter 68 y/o female with hydronephrosis and UTI 2/2 to kidney stones, patient was seen by her urologist, was taken OR and had VL stent placed then patient went to septic shock transferred to ICU and started on some IVF as patient has history of CHF and placed her on vasopressin and Levophed to maintain mean arterial pressure, patient normally has soft BP, for UTI patient is started on broad spectrum Abx witn meropenem, will follow up on urine and blood culture, patient is clinically stable will follow the patient with the heat treat supervisor. (2) Hydronephrosis with renal and ureteral calculous obstruction: Code(s): N13.2 - Hydronephrosis with renal and ureteral calculous obstruction Status: Acute Assessment and Plan: 02/28/24: CT of the abdomen pelvis show a 3 mm stone at the left ureterovesicular junction with mild left hydronephrosis and hydroureter urology consulted Plan for cystoscopy today with stent placement to the left ureter continue Rocephin 2 g (3) Ureterolithiasis: Code(s): N20.1 - Calculus of ureter Status: Inactive Assessment and Plan: see above (4) Acute UTI: Code(s): N39.0 - Urinary tract infection, site not specified Status: Inactive Assessment and Plan: 02/28/24: likely secondary to obstructing kidney stone UA showing slightly cloudy appearance, 2+ urine protein, 3+ urine glucose, trace urine ketone, trace urine blood, positive nitrate, 2.0 urine urobilinogen, 11-20 urine RBC, many urine squamous epithelial cells, 1+ urine bacteria. Urine and blood cultures were obtained and pending patient given a dose of Cipro at [facility] changed to Rocephin 2 g upon arrival [facility] (5) Altered mental status: Code(s): R41.82 - Altered mental status, unspecified Status: Acute Assessment and Plan: 02/28/24: likely secondary to obstructing kidney stone, UTI, severe sepsis continue neuro checks (6) Acute kidney injury: Code(s): N17.9 - Acute kidney failure, unspecified Status: Acute Assessment and Plan: 02/28/24: likely secondary to sepsis with obstructing kidney stone creatinine 1.80, EGFR 28 unsure baseline creatinine continue to trend urology consulted (7) Transaminitis: Code(s): R74.01 - Elevation of levels of liver transaminase levels Status: Acute Assessment and Plan: 02/28/24: likely secondary to severe sepsis AST 389, ALT 144 total bili within range, 0.7 continue to trend (8) Pancytopenia: Code(s): D61.818 - Other pancytopenia Status: Acute Assessment and Plan: 02/28/24: likely due to severe sepsis white blood cell count 2.6, RBC 3.80, platelet count 92 continue to trend (9) CHF (congestive heart failure): Code(s): I50.9 - Heart failure, unspecified Status: Acute Assessment and Plan: 02/28/24: ProBNP 4970 No echo to review, will obtain Plan 68 y/o female with hydronephrosis and UTI 2/2 to kidney stones, patient was seen by her urologist, was taken OR and had VL stent placed then
[2024-02-29] MEDS: ATORVASTATIN 40 MG TABLET 80 MG PO (20:08)
[2024-03-01] VITALS (50 sets, daily range): BP systolic 81–113; BP diastolic 40–79; PULSE 68–90; RESP 13–29; TEMP 36.4–36.9; O2SAT 94–100
[2024-03-01 04:29] LABS: Hematocrit 30.6 % (37.0-47.0); Hemoglobin 10.2 g/dL (12.0-15.0); Immature Platelet Fraction Pct 4.5 % (0.9-11.2); Mean Corpuscular HGB Conc 33.3 g/dl (32-36); Mean Corpuscular Hemoglobin 32.2 pg (26-34); Mean Corpuscular Volume 96.5 fl (80-100); Mean Platelet Volume 10.7 fl (7.4-10.4); Platelet Count Result 45 k/mm3 (150-375); Red Blood Count 3.17 M/mm3 (4.2-5.4); White Blood Count 19.3 K/mm3 (4.5-10.0)
[2024-03-01 04:47] LABS: Alanine Aminotransferase 100 U/L (6-35); Albumin Level 3.4 g/dL (3.5-5.1); Alkaline Phosphatase 64 U/L (38-126); Anion Gap 11 mmol/L (4-12); Aspartate Amino Transferase 74 U/L (14-36); Bilirubin,Total 1.7 mg/dL (0.2-1.3); Blood Urea Nitrogen 26 mg/dL (7-17); Calcium 8.2 mg/dL (8.4-10.2); Carbon Dioxide 21 mmol/L (22-30); Chloride 110 mmol/L (98-107); Estimated CRCL calculation 36 ml/min; Estimated Glomerular Filt Rate 45; Glucose 99 mg/dL (65-110); Magnesium 1.9 mg/dL (1.6-2.3); Phosphorus 3.3 mg/dL (2.5-4.5); Potassium 3.8 mmol/L (3.4-5.0); Sodium 142 mmol/L (137-145)
[2024-03-01 04:55] LABS: Anisocytosis 1+; Band Neutrophils Percent 11 % (0-6); Lymphocytes Absolute Manual 0.19 K/mm3 (1.1-4.5); Monocytes Absolute Manual 0.19 K/mm3 (0.1-0.90); Monocytes Percent Manual 1 % (3-9); Neutrophils Absolute Manual 18.91 K/mm3 (1.7-7.2); Neutrophils Percent Manual 87 % (46-73); Platelet Estimate Decreased (Adequate); Schistocytes Rare; Total Cells Counted 100
[2024-03-01 04:56] LABS: Burr Cells 1+
[2024-03-01] MEDS: HYDROCORTISONE SODIUM SUCCINATE 100 MG/2 ML VIAL IV PUSH ×3 (06:53→21:08)
[2024-03-01] MEDS: AMIODARONE HCL 200 MG TABLET PO (08:12)
[2024-03-01] MEDS: CALCIUM/VITAMIN D 500 MG/5 MCG (200 I.U.) TABLET PO ×2 (08:12→17:14)
[2024-03-01] MEDS: HYDROcodone/acetaminophen (*CRX) 5-325 MG TABLET 1 TAB PO ×2 (08:12→21:08)
--- NOTE | 2024-03-01 09:35 | WPDUROPN2 ---
Progress Note: A&P Assessment and Plan (1) Hydronephrosis with renal and ureteral calculous obstruction: Code(s): N13.2 - Hydronephrosis with renal and ureteral calculous obstruction Status: Acute Assessment and Plan: S/p cystoscopy in the left retrograde pyelogram, and left ureteral stent placement on 02/28/2024. Will plan for definitive outpatient stone management following resolution of acute infection (2) Septic shock: Code(s): A41.9 - Sepsis, unspecified organism; R65.21 - Severe sepsis with septic shock Status: Acute Assessment and Plan: Secondary to UTI/obstruction stone. Urine culture with growth of E coli. Preliminary blood cultures with growth of Gram-negative rods. Continue broad-spectrum antibiotics while awaiting final culture results as well as ongoing ICU care. Subjective Subjective Date/Time Seen: 03/01/24 09:35 Interval history: Lydia is feeling much improved today. Endorses some mild left flank discomfort though reports significant improvement overall. Denies nausea, vomiting, fever, or chills. Tolerating her diet. No issues with Suarez catheter which is draining clear yellow urine. Review of Systems Review of Systems: All systems reviewed & are unremarkable except as noted in HPI and below Exam Narrative: General: Awake, alert, comfortable, no acute distress HEENT: Normocephalic, atraumatic, sclerae anicteric Respiratory: Normal respiratory effort, no accessory muscle use Abdomen: Nondistended, soft, nontender : Suarez catheter draining clear yellow urine Skin: Normal coloration, warm and dry Neurologic: No focal neuro deficits noted Psychiatric: Appropriate mood and affect, judgment and insight intact Objective Data Vital Signs Vital Signs: Vital Signs - 24 hr 02/29/24 10:00 02/29/24 10:00 02/29/24 10:00 Temperature Pulse Rate 74 74 74 Respiratory Rate Blood Pressure 100/31 L 100/31 L Pulse Oximetry Oxygen Delivery Oxygen Flow Rate 02/29/24 10:00 02/29/24 10:52 02/29/24 11:00 Temperature Pulse Rate 74 76 78 Respiratory Rate 21 H Blood Pressure 97/55 L 116/57 L 107/56 L Pulse Oximetry 95 Oxygen Delivery Oxygen Flow Rate 02/29/24 11:15 02/29/24 11:30 02/29/24 11:45 Temperature Pulse Rate 75 76 81 Respiratory Rate Blood Pressure 117/103 H 113/64 105/60 Pulse Oximetry Oxygen Delivery Oxygen Flow Rate 02/29/24 12:00 02/29/24 12:00 02/29/24 12:15 Temperature 97.7 F Pulse Rate 82 83 81 Respiratory Rate 18 Blood Pressure 105/60 105/60 102/52 L Pulse Oximetry 95 Oxygen Delivery Oxygen Flow Rate 02/29/24 12:31 02/29/24 12:46 02/29/24 13:00 Temperature Pulse Rate 80 82 77 Respiratory Rate Blood Pressure 108/51 L 95/75 L 102/41 L Pulse Oximetry Oxygen Delivery Oxygen Flow Rate 02/29/24 12:00 02/29/24 12:00 02/29/24 13:15 Temperature Pulse Rate 83 78 Respiratory Rate Blood Pressure 117/68 Pulse Oximetry Oxygen Delivery Room Air Oxygen Flow Rate 02/29/24 13:30 02/29/24 12:00 02/29/24 13:45 Temperature Pulse Rate 78 78 78 Respiratory Rate Blood Pressure 90/46 L 105/60 102/70 Pulse Oximetry Oxygen Delivery Oxygen Flow Rate 02/29/24 14:00 02/29/24 14:00 02/29/24 14:05 Temperature Pulse Rate 79 80 80 Respiratory Rate 27 H Blood Pressure 115/66 115/66 115/66 Pulse Oximetry 92 Oxygen Delivery Oxygen Flow Rate 02/29/24 14:00 02/29/24 14:15 02/29/24 14:30 Temperature Pulse Rate 80 87 81 Respiratory Rate Blood Pressure 128/75 109/68 Pulse Oximetry Oxygen Delivery Oxygen Flow Rate 02/29/24 14:47 02/29/24 15:00 02/29/24 15:15 Temperature Pulse Rate 78 75 78 Respiratory Rate Blood Pressure 92/51 L 93/67 L 110/63 Pulse Oximetry Oxygen Delivery Oxygen Flow Rate 02/29/24 15:30 02/29/24 15:40 02/29/24 15:45 Temperature Pu
[2024-03-01] MEDS: MEROPENEM 1 GM/NS 100 ML 1 GM/100 ML BAG IVPB ×2 (11:55→21:09)
[2024-03-01] MEDS: NOREPINEPHRINE 8 MG/D5W 250 ML 8 MG/250 ML BAG 1.88 MG IV CONT (12:04)
--- NOTE | 2024-03-01 12:23 | WPDINTPN ---
Progress Note: A&P Assessment and Plan (1) Septic shock: Code(s): A41.9 - Sepsis, unspecified organism; R65.21 - Severe sepsis with septic shock Status: Acute Assessment and Plan: Septic shock secondary to obstructive stone and UTI 02/27: Urine cultures growing E coli 02/27: Blood cultures growing Gram-negative bacilli / bottles -Continue meropenem to cover for possible ESBL -patient is adequately fluid-resuscitated, currently off all IV fluids given history of congestive heart failure, mitral valve regurgitation -off vasopressin -continue to wean Levophed to maintain MAP > 65 mmHg for adequate end organ perfusion Continue hydrocortisone stress dose at this time 02/29/2024: Echocardiogram Summary 1. Complete two-dimensional, color flow and Doppler transthoracic echocardiogram is performed. 2. Left ventricular chamber dimension is normal. 3. Left ventricular systolic function is normal, estimated at 60-65%. 4. The left ventricular diastolic function is grade IV diastolic dysfunction. 5. E/e' 18 is elevated. 6. Left atrial chamber dimension is mildly enlarged. 7. There is trace aortic valve regurgitation. 8. There is moderate mitral valve regurgitation. 9. There is moderate tricuspid valve regurgitation. 10. Mild pulmonary hypertension, estimated pulmonary arterial systolic pressure is 44 mmHg. 11. There is trace pulmonic regurgitation. (2) CHF (congestive heart failure): Qualifiers: Heart failure type: diastolic Code(s): I50.9 - Heart failure, unspecified Status: Acute Assessment and Plan: Patient has history of CHF. Echocardiogram as above. Conservative IV fluids. -grade 4 diastolic dysfunction, moderate mitral valve regurg, moderate tricuspid valve regurg, will consult Cardiology (3) Transaminitis: Code(s): R74.01 - Elevation of levels of liver transaminase levels Status: Acute Assessment and Plan: Secondary to shock liver. Levels are improving. Monitor. (4) Acute kidney injury: Code(s): N17.9 - Acute kidney failure, unspecified Status: Acute Assessment and Plan: Secondary to obstructive kidney stone and hydronephrosis along with sepsis and shock. Creatinine on admission was 1.80 Patient has received IV fluids and now off. Continue to maintain mean arterial pressure with pressors. Creatinine has improved to 1.20 Monitor urine output electrolytes and creatinine Appreciate nephrology following the patient 02/27/2025: CT scan of the abdomen and pelvis: 3 mm stone at left ureterovesicular junction with mild left hydronephrosis and hydroureter (5) Hydronephrosis with renal and ureteral calculous obstruction: Code(s): N13.2 - Hydronephrosis with renal and ureteral calculous obstruction Status: Acute Assessment and Plan: 02/27: Status post cystoscopy and left ureteral stent placement -appreciate urology following the patient (6) Metabolic acidosis: Code(s): E87.20 - Acidosis, unspecified Status: Acute Assessment and Plan: Of bicarb infusion, acidosis have resolved (7) Atrial fibrillation: Code(s): I48.91 - Unspecified atrial fibrillation Status: Acute Assessment and Plan: Patient has history of AFib status post ablation. Continue amiodarone and Eliquis Plan DVT prophylaxis -SCDs and Eliquis Nutrition -heart healthy diet Code Status - Full Code Total Critical Care Time - 33 minutes Discussed with patient and updated with her condition and plan of care. I answered all her questions Due to a high probability of clinically significant, life threatening deterioration, the patient required my highest level of preparedness to intervene emergently and I personally spent this critical care time directly and personally managing the patient. This critical care time included obtaining a history; examining the patient; pulse oximetry; ordering and review
--- NOTE | 2024-03-01 13:20 | PM.IMPN ---
Progress Note: A&P Assessment and Plan (1) Septic shock: Code(s): A41.9 - Sepsis, unspecified organism; R65.21 - Severe sepsis with septic shock Status: Acute Assessment and Plan: Patient presents with abd pain, urinary frequency, and dysuria and found to have septic shock secondary to obstructive stone and UTI. Lactic up to 5. Appropriate abx started after cultures collected. She was adequately fluid-resuscitated and started on pressors. IV fluids off due to her hx of CHF. Echo as noted below. WBC trending down (elevated WBC may be related to steroids). 02/27: Urine cultures growing E coli 02/27: Blood cultures growing Gram-negative bacilli 06/19 bottles Continue meropenem to cover for possible ESBL Off vasopressin Continue to wean Levophed to maintain MAP > 65 mmHg for adequate end organ perfusion Continue hydrocortisone stress dose at this time (2) Acute kidney injury: Code(s): N17.9 - Acute kidney failure, unspecified Status: Acute Assessment and Plan: Cr 1.8 on admission. No old labs to review. [place] ALLISON secondary to obstructive kidney stone, hydronephrosis, sepsis and shock. Patient has received IV fluids and now off. Continue to maintain mean arterial pressure with pressors. Creatinine has improved to 1.20 Monitor urine output electrolytes and creatinine Appreciate nephrology following the patient (3) Hydronephrosis with renal and ureteral calculous obstruction: Code(s): N13.2 - Hydronephrosis with renal and ureteral calculous obstruction Status: Acute Assessment and Plan: On admission, CT scan of the abdomen and pelvis showing a 3 mm stone at left ureterovesicular junction with mild left hydronephrosis and hydroureter. 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 Echo showing Normal LV size and function (EF 60-65%) with grade IV diastolic fxn, moderate MR and moderate TR with mild pHTN. Conservative IV fluids given and now off. Cardiology consulted (5) Transaminitis: Code(s): R74.01 - Elevation of levels of liver transaminase levels Status: Acute Assessment and Plan: AST and LAT mildly elevated. [place] secondary to shock liver. Levels are improving. Monitor. (6) Metabolic acidosis: Code(s): E87.20 - Acidosis, unspecified Status: Acute Assessment and Plan: Serum bicarb dropped to 13 with normal AG. Was treated with bicarb infusion Acidosis better. [place] related to ALLISON Follow (7) Atrial fibrillation: Code(s): I48.91 - Unspecified atrial fibrillation Status: Acute Assessment and Plan: Patient has history of AFib status post ablation. She maintains NSR by tele. Continue amiodarone and Eliquis (8) Thrombocytopenia: Code(s): D69.6 - Thrombocytopenia, unspecified Status: Acute Assessment and Plan: Plt count dropped to 45K. [place] related to sepsis. Not on Lovenox or Heparin. Follow Plan DVT prophylaxis -SCDs and Eliquis Nutrition -heart healthy diet Code Status - Full Code Subjective Date/time seen: 03/01/24 13:20 Interval history: 68yo female with amyloidosis, Afib s/p ablation, CVA, and CHF originally presenting to [facility] with nausea, suprapubic pain radiating around to her left side, urinary frequency, and dysuria. Assuming care. Chart reviewed. No CP or SOB. Had left flank pain but mild in nature. No back pain. Last plt count was 267K on 02/17/24 Exam Narrative: AF 97.5 89/51 76 27 95% ra Gen - NARD Neck - Rt IJ TLC secured. Chest - bibasilar crackles. CV - RRR S1/S2. Tele showing no significa
--- NOTE | 2024-03-01 13:43 | PM.CNCAR ---
Assessment and Plan Assessment and plan (1) Septic shock: Code(s): A41.9 - Sepsis, unspecified organism; R65.21 - Severe sepsis with septic shock Status: Acute Assessment and Plan: Due to obstructive stone and UTI. Management per ICU team. (2) Cardiomyopathy: Code(s): I42.9 - Cardiomyopathy, unspecified Status: Acute Assessment and Plan: Has known amyloid cardiomyopathy. At this time, patient appears fairly euvolemic. Continue to monitor volume status. Outpatient follow up with Dr. Felix. Will push her echocardiogram images from [place] onto [facility]. (3) Atrial fibrillation: Code(s): I48.91 - Unspecified atrial fibrillation Status: Acute Assessment and Plan: In sinus. Continue Amiodarone and Eliquis. Follows with [facility]. 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 CT scan showed a 3mm left UVJ stone with hydronephrosis. Lactate was elevated at 3.3. SCr elevated at 1.8. She had a documented fever of 102.9. She was transferred to [place] for Urology evaluation. She underwent cystoscopy, left retrograde pyelogram and placement of left 6F VL stent on 02/27 with Urology. She was started on vasopressors for shock and admitted to the ICU post-surgery. Urine culture growing E. coli. Blood cultures are positive for Gram negative bacilli. NT pro BNP on 02/27 4970. On review of her Epic records, her NT pro BNP on 02/16/2024 was 905. Echocardiogram this admission shows LVEF 60-65%, grade 4 diastolic dysfunction, mild enlargement of left atrium, moderate MR, moderate TR, mild pulmonary hypertension. Prior echocardiogram 06/17/2023 shows normal LV and RV size and systolic function. Mild-moderate MR. Trace TR. [facility]. Upon my evaluation, patient states she is feeling much better. Remains on Levophed. No shortness of breath, orthopnea, chest pain. Review of Systems Review of Systems: All systems reviewed & are unremarkable except as noted in HPI and below (HPI) [facility] Past Medical History Medical History Amyloidosis Atrial fibrillation Status post ablation after multiple failed cardioversion CHF (congestive heart failure) CVA (cerebral vascular accident) Ureterolithiasis Surgical History Surgical History History of radiofrequency ablation procedure for cardiac arrhythmia Social History Social History Social History: Denies smoking alcohol or drug use. She is a nurse by profession. Smoking packs per day: 0.5 Smoking cigarettes per day: 10.0 Years smoked: 5 Smoking pack-years: 2.50 Smoking status: Former smoker Tobacco type: cigarettes Second hand tobacco smoke exposure: Yes Smoking end date: 01/17/20 Alcohol intake: unknown Substance use: never Do You Feel Safe in your Home?: Yes Lack of Transportation: No Lack of Food: Never True Current Housing: Decline to Answer Concerned About Future Housing: No Difficulty Paying Gas/Electric Bills: No Difficulty Paying for Meds: No Currently Unemployed: No Education: Associate Degree Difficulty w/ Childcare or Family Care: No Spiritual care concerns: No Meds Home Me
[2024-03-01] MEDS: ATORVASTATIN 40 MG TABLET 80 MG PO (21:08)
[2024-03-02] VITALS (16 sets, daily range): BP systolic 84–116; BP diastolic 50–66; PULSE 60–80; RESP 14–28; TEMP 36.3–36.5; O2SAT 94–100
[2024-03-02] MEDS: HYDROCORTISONE SODIUM SUCCINATE 100 MG/2 ML VIAL IV PUSH ×3 (05:34→21:29)
[2024-03-02] MEDS: HYDROcodone/acetaminophen (*CRX) 5-325 MG TABLET 1 TAB PO ×3 (05:35→21:29)
[2024-03-02 06:13] LABS: Hematocrit 32.7 % (37.0-47.0); Immature Platelet Fraction Pct 7.9 % (0.9-11.2); Mean Corpuscular HGB Conc 33.6 g/dl (32-36); Mean Corpuscular Hemoglobin 32.4 pg (26-34); Mean Corpuscular Volume 96.5 fl (80-100); Mean Platelet Volume 11.4 fl (7.4-10.4); Platelet Count Result 42 k/mm3 (150-375); Red Blood Count 3.39 M/mm3 (4.2-5.4); Red Cell Distribution Width 16.1 % (11.5-14.5)
[2024-03-02 06:25] LABS: Alanine Aminotransferase 66 U/L (6-35); Albumin Level 2.9 g/dL (3.5-5.1); Alkaline Phosphatase 90 U/L (38-126); Anion Gap 6 mmol/L (4-12); Aspartate Amino Transferase 30 U/L (14-36); Bilirubin,Total 1.7 mg/dL (0.2-1.3); Blood Urea Nitrogen 30 mg/dL (7-17); Calcium 8.3 mg/dL (8.4-10.2); Carbon Dioxide 24 mmol/L (22-30); Chloride 109 mmol/L (98-107); Estimated CRCL calculation 39 ml/min; Estimated Glomerular Filt Rate 50; Glucose 100 mg/dL (65-110); Magnesium 2.2 mg/dL (1.6-2.3); Phosphorus 2.3 mg/dL (2.5-4.5); Potassium 3.4 mmol/L (3.4-5.0); Sodium 139 mmol/L (137-145)
[2024-03-02 06:58] LABS: Anisocytosis 1+; Band Neutrophils Percent 2 % (0-6); Burr Cells 1+; Lymphocytes Absolute Manual 0.78 K/mm3 (1.1-4.5); Lymphocytes Percent Manual 3 % (18-44); Monocytes Absolute Manual 0.26 K/mm3 (0.1-0.90); Monocytes Percent Manual 1 % (3-9); Neutrophils Absolute Manual 24.96 K/mm3 (1.7-7.2); Neutrophils Percent Manual 94 % (46-73); Platelet Estimate Decreased (Adequate); Schistocytes None Seen; Total Cells Counted 100
[2024-03-02] MEDS: CALCIUM/VITAMIN D 500 MG/5 MCG (200 I.U.) TABLET PO ×2 (07:59→16:58)
[2024-03-02] MEDS: AMIODARONE HCL 200 MG TABLET PO (07:59)
[2024-03-02] MEDS: POTASSIUM PHOS/SODIUM PHOS 250 MG TABLET PO (07:59)
--- NOTE | 2024-03-02 08:31 | WPDINTPN ---
Progress Note: A&P Assessment and Plan (1) Septic shock: Code(s): A41.9 - Sepsis, unspecified organism; R65.21 - Severe sepsis with septic shock Status: Acute Assessment and Plan: Septic shock secondary to obstructive stone and UTI 02/27: Urine cultures growing E coli 02/27: Blood cultures growing Gram-negative bacilli / bottles -Continue meropenem to cover for possible ESBL -patient is adequately fluid-resuscitated, currently off all IV fluids given history of congestive heart failure, mitral valve regurgitation -Off pressors, -Continue hydrocortisone stress dose at this time -will add midodrine 02/29/2024: Echocardiogram Summary 1. Complete two-dimensional, color flow and Doppler transthoracic echocardiogram is performed. 2. Left ventricular chamber dimension is normal. 3. Left ventricular systolic function is normal, estimated at 60-65%. 4. The left ventricular diastolic function is grade IV diastolic dysfunction. 5. E/e' 18 is elevated. 6. Left atrial chamber dimension is mildly enlarged. 7. There is trace aortic valve regurgitation. 8. There is moderate mitral valve regurgitation. 9. There is moderate tricuspid valve regurgitation. 10. Mild pulmonary hypertension, estimated pulmonary arterial systolic pressure is 44 mmHg. 11. There is trace pulmonic regurgitation. (2) CHF (congestive heart failure): Qualifiers: Heart failure type: diastolic Code(s): I50.9 - Heart failure, unspecified Status: Acute Assessment and Plan: Patient has history of CHF. Echocardiogram as above. Conservative IV fluids. -grade 4 diastolic dysfunction, moderate mitral valve regurg, moderate tricuspid valve regurg, -appreciate cardiology evaluation recommendation (3) Transaminitis: Code(s): R74.01 - Elevation of levels of liver transaminase levels Status: Acute Assessment and Plan: Secondary to shock liver. Levels are improving. Monitor. (4) Acute kidney injury: Code(s): N17.9 - Acute kidney failure, unspecified Status: Acute Assessment and Plan: Secondary to obstructive kidney stone and hydronephrosis along with sepsis and shock. Creatinine on admission was 1.80 Patient has received IV fluids and now off. Continue to maintain mean arterial pressure with pressors. Creatinine has improved to 1.10 -continue to monitor urine output, renal function and electrolytes Appreciate nephrology following the patient 02/27/2025: CT scan of the abdomen and pelvis: 3 mm stone at left ureterovesicular junction with mild left hydronephrosis and hydroureter (5) Hydronephrosis with renal and ureteral calculous obstruction: Code(s): N13.2 - Hydronephrosis with renal and ureteral calculous obstruction Status: Acute Assessment and Plan: 02/27: Status post cystoscopy and left ureteral stent placement -appreciate urology following the patient (6) Metabolic acidosis: Code(s): E87.20 - Acidosis, unspecified Status: Acute Assessment and Plan: Of bicarb infusion, acidosis have resolved (7) Atrial fibrillation: Code(s): I48.91 - Unspecified atrial fibrillation Status: Acute Assessment and Plan: Patient has history of AFib status post ablation. Continue amiodarone and Eliquis Plan DVT prophylaxis -SCDs and Eliquis Nutrition -heart healthy diet Code Status - Full Code PT/OT has been ordered -up in chair today Total Critical Care Time - 31 minutes Discussed with patient and updated with her condition and plan of care. I answered all her questions Patient may transfer out of the ICU if okay with hospitalist Due to a high probability of clinically significant, life threatening deterioration, the patient required my highest level of preparedness to intervene emergently and I personally spent this critical care time directly and personally managing the patient. This critical care time
[2024-03-02] MEDS: MIDODRINE HCL 10 MG TABLET PO ×3 (09:02→16:58)
--- NOTE | 2024-03-02 09:49 | WPDUROPN2 ---
Progress Note: A&P Assessment and Plan (1) Hydronephrosis with renal and ureteral calculous obstruction: Code(s): N13.2 - Hydronephrosis with renal and ureteral calculous obstruction Status: Acute Assessment and Plan: S/p cystoscopy, left retrograde pyelogram, and left ureteral stent placement on 02/28/2024. Will plan for definitive outpatient stone management following resolution of acute infection. (2) Septic shock: Code(s): A41.9 - Sepsis, unspecified organism; R65.21 - Severe sepsis with septic shock Status: Acute Assessment and Plan: Secondary to UTI/obstructing stone. Urine and blood cultures with growth of E coli. Continues on meropenem. WBC has increased to 26.0 today. Her creatinine has improved to 1.1. She remains afebrile. Continued management in ICU. Plan Okay for quinonez removal/void trial from urology standpoint anytime; can continue for accurate I&O monitoring while she remains in ICU Subjective Subjective Date/Time Seen: 03/02/24 09:49 Interval history: Lydia is feeling improved today. Her left flank pain continues to improve, states is nearly resolved at this time. Denies nausea, vomiting, fever, chills. Reports no issues with Quinonez catheter. Review of Systems Review of Systems: All systems reviewed & are unremarkable except as noted in HPI and below Exam Narrative: General: Awake, alert, comfortable, no acute distress HEENT: Normocephalic, atraumatic, sclerae anicteric Respiratory: Normal respiratory effort, no accessory muscle use Abdomen: Nondistended, soft, nontender : Quinonez catheter draining light pink blood-tinged urine Skin: Normal coloration, warm and dry Neurologic: No focal neuro deficits noted Psychiatric: Appropriate mood and affect, judgment and insight intact Objective Data Vital Signs Vital Signs: Vital Signs - 24 hr 03/01/24 10:08 03/01/24 10:00 03/01/24 10:00 Temperature Pulse Rate 73 71 71 Respiratory Rate 29 H Blood Pressure 85/56 L 86/57 L Pulse Oximetry 94 Oxygen Delivery Fraction of Inspired Oxygen 03/01/24 12:03 03/01/24 12:04 03/01/24 12:17 Temperature Pulse Rate 80 80 79 Respiratory Rate Blood Pressure 113/64 113/64 108/62 Pulse Oximetry Oxygen Delivery Fraction of Inspired Oxygen 03/01/24 12:00 03/01/24 12:00 03/01/24 12:00 Temperature 97.5 F L Pulse Rate 79 82 Respiratory Rate 27 H Blood Pressure 113/64 Pulse Oximetry 94 95 Oxygen Delivery Room Air Fraction of Inspired Oxygen 03/01/24 12:30 03/01/24 12:45 03/01/24 13:03 Temperature Pulse Rate 82 84 76 Respiratory Rate Blood Pressure 89/67 L 103/52 L 89/51 L Pulse Oximetry Oxygen Delivery Fraction of Inspired Oxygen 03/01/24 13:30 03/01/24 13:45 03/01/24 14:00 Temperature Pulse Rate 77 74 76 Respiratory Rate Blood Pressure 82/51 L 81/47 L 98/53 L Pulse Oximetry Oxygen Delivery Fraction of Inspired Oxygen 03/01/24 14:00 03/01/24 14:00 03/01/24 14:15 Temperature Pulse Rate 77 77 73 Respiratory Rate 23 H Blood Pressure 98/53 L 100/57 L Pulse Oximetry 96 Oxygen Delivery Fraction of Inspired Oxygen 03/01/24 14:30 03/01/24 14:45 03/01/24 15:01 Temperature Pulse Rate 71 72 72 Respiratory Rate Blood Pressure 98/56 L 95/61 L 104/67 Pulse Oximetry Oxygen Delivery Fraction of Inspired Oxygen 03/01/24 15:15 03/01/24 15:30 03/01/24 15:45 Temperature Pulse Rate 70 69 68 Respiratory Rate Blood Pressure 94/60 L 93/60 L 91/57 L Pulse Oximetry Oxygen Delivery Fraction of Inspired Oxygen 03/01/24 16:00 03/01/24 16:15 03/01/24 16:29 Temperature Pulse Rate 68 69 70 Respiratory Rate Blood Pressure 91/54 L 99/60 L 100/56 L Pulse Oximetry Oxygen Delivery Fraction of Inspired Oxygen 03/01/24 16:00 03/01/24 16:00 03/01/24 16:00 Temperature Pulse Rate 70 70 Respiratory
[2024-03-02] MEDS: cefTRIAXone 2 GM/NS 100 ML 2 GM/100 ML BAG IVPB (11:05)
--- NOTE | 2024-03-02 14:18 | PM.IMPN ---
Progress Note: A&P Assessment and Plan (1) Septic shock: Code(s): A41.9 - Sepsis, unspecified organism; R65.21 - Severe sepsis with septic shock Status: Acute Assessment and Plan: Patient presents with abd pain, urinary frequency, and dysuria and found to have septic shock secondary to obstructive stone and UTI BC and UC are positive for EColi Continue meropenem to cover for possible ESBL Off vasopressin Pt is on midodrine Bp running low continue to watch on the floor (2) Acute kidney injury: Code(s): N17.9 - Acute kidney failure, unspecified Status: Acute Assessment and Plan: Cr 1.8 on admission. No old labs to review. [place] ALLISON secondary to obstructive kidney stone, hydronephrosis, sepsis and shock. pt is sp fluids Creatinine has improved to 1.1 Monitor urine output electrolytes and creatinine Appreciate nephrology (3) Hydronephrosis with renal and ureteral calculous obstruction: Code(s): N13.2 - Hydronephrosis with renal and ureteral calculous obstruction Status: Acute Assessment and Plan: On admission, CT scan of the abdomen and pelvis showing a 3 mm stone at left ureterovesicular junction with mild left hydronephrosis and hydroureter. 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 Echo showing Normal LV size and function (EF 60-65%) with grade IV diastolic fxn, moderate MR and moderate TR with mild pHTN. Conservative IV fluids given and now off. Cardiology consulted (5) Transaminitis: Code(s): R74.01 - Elevation of levels of liver transaminase levels Status: Acute Assessment and Plan: AST and LAT mildly elevated. [place] secondary to shock liver. and history of amylodosis (6) Metabolic acidosis: Code(s): E87.20 - Acidosis, unspecified Status: Acute Assessment and Plan: resolved Serum bicarb dropped to 13 with normal AG. Was treated with bicarb infusion Acidosis better. relate to [place] (7) Atrial fibrillation: Code(s): I48.91 - Unspecified atrial fibrillation Status: Acute Assessment and Plan: Patient has history of AFib status post ablation. She maintains NSR by tele. Continue amiodarone and Eliquis pt sees Electrophysiology in [place] (8) Thrombocytopenia: Code(s): D69.6 - Thrombocytopenia, unspecified Status: Acute Assessment and Plan: Plt count dropped to 45K. [place] related to sepsis. Not on Lovenox or Heparin. watch plts Subjective Date/time seen: 03/02/24 14:18 Interval history: 68yo female with amyloidosis, Afib s/p ablation, CVA, and CHF originally presenting to [facility] with nausea, suprapubic pain radiating around to her left side, urinary frequency, and dysuria. Pt is sp S/p cystoscopy, left retrograde pyelogram, and left ureteral stent placement on 02/28/2024. Pt will need stone management following resolution of acute infection Continue watch wcc and cultures Pt can move out of icu off vasopressors now Bp still running low Continue midodrine on the floor encourage oral fluids Review of Systems Review of Systems: No flank pain today Bp running low normal Exam Narrative: Generally : chronically ill with crackled lips and skin and rough tongue Neck - Rt IJ TLC secured. Chest - clear CV - RRR S1/S2. Tele showing no significant dysrhythmias Abd - Soft, ND Back - no CVA tenderness. - slight pinkness to urine. Ext - trace pedal edema Neuro - Alert and appropriate Psych - Nml mood and affect Skin - Warm and dry Objective Data Vital Signs Vital Signs: Vital Signs - 24 hr
--- NOTE | 2024-03-02 17:03 | PC.NURSE ---
This patient, Lydia Gallego, was transferred to [[facility]2 ] on 03/02/24 at 1703. Personal belongings sent with patient. Report given to [ CHRISS Bernal @ [id number]]. Appropriate documentation sent with patient. Transferred delayed due to room being cleaned at the time report was given.
--- NOTE | 2024-03-02 17:17 | PC.NURSE ---
This patient, Lydia Gallego, was received from [ICU-5] on 03/02/24 at 1705. Patient/family oriented to unit policies and routines
[2024-03-02] MEDS: ATORVASTATIN 40 MG TABLET 80 MG PO (21:29)
[2024-03-03] MEDS: HYDROCORTISONE SODIUM SUCCINATE 100 MG/2 ML VIAL IV PUSH (05:49)
[2024-03-03 06:07] LABS: Alanine Aminotransferase 55 U/L (6-35); Albumin Level 2.9 g/dL (3.5-5.1); Alkaline Phosphatase 105 U/L (38-126); Anion Gap 5 mmol/L (4-12); Aspartate Amino Transferase 36 U/L (14-36); Bilirubin,Total 1.1 mg/dL (0.2-1.3); Blood Urea Nitrogen 32 mg/dL (7-17); Calcium 8.1 mg/dL (8.4-10.2); Carbon Dioxide 23 mmol/L (22-30); Chloride 109 mmol/L (98-107); Estimated CRCL calculation 42 ml/min; Estimated Glomerular Filt Rate 55; Glucose 90 mg/dL (65-110); Magnesium 2.1 mg/dL (1.6-2.3); Phosphorus 2.2 mg/dL (2.5-4.5); Potassium 3.6 mmol/L (3.4-5.0); Sodium 137 mmol/L (137-145)
[2024-03-03 06:09] LABS: Hematocrit 33.9 % (37.0-47.0); Hemoglobin 11.3 g/dL (12.0-15.0); Immature Platelet Fraction Pct 7.9 % (0.9-11.2); Mean Corpuscular HGB Conc 33.3 g/dl (32-36); Mean Corpuscular Hemoglobin 32.3 pg (26-34); Mean Corpuscular Volume 96.9 fl (80-100); Mean Platelet Volume 12.4 fl (7.4-10.4); Platelet Count Result 50 k/mm3 (150-375); White Blood Count 28.7 K/mm3 (4.5-10.0)
[2024-03-03 06:38] VITALS: BP 109/63; PULSE 67; RESP 18; TEMP 36.7; O2SAT 95
[2024-03-03 06:58] LABS: Band Neutrophils Percent 8 % (0-6); Lymphocytes Absolute Manual 0.28 K/mm3 (1.1-4.5); Lymphocytes Percent Manual 1 % (18-44); Monocytes Absolute Manual 0.57 K/mm3 (0.1-0.90); Monocytes Percent Manual 2 % (3-9); Neutrophils Absolute Manual 27.83 K/mm3 (1.7-7.2); Neutrophils Percent Manual 89 % (46-73); Platelet Estimate Decreased (Adequate); Total Cells Counted 100
[2024-03-03 06:59] LABS: Schistocytes None Seen
[2024-03-03 08:00] VITALS: PULSE 65
[2024-03-03] MEDS: MIDODRINE HCL 10 MG TABLET PO ×3 (08:00→16:51)
[2024-03-03] MEDS: CALCIUM/VITAMIN D 500 MG/5 MCG (200 I.U.) TABLET PO ×2 (08:00→16:51)
[2024-03-03] MEDS: AMIODARONE HCL 200 MG TABLET PO (08:00)
[2024-03-03] MEDS: HYDROcodone/acetaminophen (*CRX) 5-325 MG TABLET 1 TAB PO ×2 (08:00→20:27)
[2024-03-03 08:35] VITALS: O2SAT 96
--- NOTE | 2024-03-03 09:47 | WPDUROPN2 ---
Progress Note: A&P Assessment and Plan (1) Hydronephrosis with renal and ureteral calculous obstruction: Code(s): N13.2 - Hydronephrosis with renal and ureteral calculous obstruction Status: Acute Assessment and Plan: S/p cystoscopy, left retrograde pyelogram, and left ureteral stent placement on 02/28/2024. Will plan for definitive outpatient stone management following resolution of acute infection. (2) Septic shock: Code(s): A41.9 - Sepsis, unspecified organism; R65.21 - Severe sepsis with septic shock Status: Acute Assessment and Plan: Secondary to UTI/obstructing stone. Urine and blood cultures with growth of E coli, on ceftriaxone. Remaining afebrile. Creatinine has normalized. Subjective Subjective Date/Time Seen: 03/03/24 09:47 Interval history: Lydia is feeling well today. Pain is much improved. Denies nausea, vomiting, fever, chills. Tolerating her diet. Voiding well since [place] removal yesterday afternoon. She does complain of some urinary frequency but denies dysuria or hematuria. Review of Systems Review of Systems: All systems reviewed & are unremarkable except as noted in HPI and below Exam Narrative: General: Awake, alert, comfortable, no acute distress HEENT: Normocephalic, atraumatic, sclerae anicteric Respiratory: Normal respiratory effort, no accessory muscle use Abdomen: Nondistended, soft, nontender Skin: Normal coloration, warm and dry Neurologic: No focal neuro deficits noted Psychiatric: Appropriate mood and affect, judgment and insight intact Objective Data Vital Signs Vital Signs: Vital Signs - 24 hr 03/02/24 10:00 03/02/24 10:00 03/02/24 10:17 Temperature Pulse Rate 75 72 73 Respiratory Rate 28 H Blood Pressure 93/61 L 93/61 L Pulse Oximetry 98 Oxygen Delivery Fraction of Inspired Oxygen 03/02/24 10:18 03/02/24 16:00 03/02/24 21:51 Temperature 97.7 F 97.5 F L Pulse Rate 72 76 60 Respiratory Rate 22 H 18 Blood Pressure 93/61 L 116/64 116/52 L Pulse Oximetry 96 100 Oxygen Delivery Fraction of Inspired Oxygen 03/02/24 20:50 03/03/24 06:38 03/03/24 08:00 Temperature 98.1 F Pulse Rate 67 65 Respiratory Rate 18 Blood Pressure 109/63 Pulse Oximetry 95 Oxygen Delivery Room Air Fraction of Inspired Oxygen 03/03/24 08:00 03/03/24 08:35 Temperature Pulse Rate Respiratory Rate Blood Pressure Pulse Oximetry 96 Oxygen Delivery Room Air Room Air Fraction of Inspired Oxygen 21 Intake/Output Intake/Output: Intake & Output 02/29/24 03/01/24 03/02/24 03/03/24 23:59 23:59 23:59 23:59 Intake Total 1369.7 1441.5 1970 890 Output Total 925 1100 1025 Balance 444.7 341.5 945 890 Meds/Results Medications: Active Medications Generic Name Dose Route Start Last Admin Trade Name Freq PRN Reason Stop Dose Admin Acetaminophen 650 mg 02/28/24 17:45 02/28/24 18:10 Acetaminophen 325 Mg Tablet PO 650 mg Q4H PRN Administration Mild Pain (1-3) or Fever Hydrocodone Bitart/Acetaminophen 1 tab 02/28/24 17:45 03/03/24 08:00 Hydrocodone/Acetaminophen (*Crx) 5-325 Mg Tablet PO 1 tab Q4H PRN Administration Moderate Pain (4-6) Amiodarone HCl 200 mg 02/29/24 09:00 03/03/24 08:00 Amiodarone Hcl 200 Mg Tablet PO 200 mg DAILY DARREN Administration Apixaban 5 mg 02/29/24 09:00 02/29/24 20:08 Apixaban 5 Mg Tablet PO 5 mg Q12HR DARREN Administration Atorvastatin Calcium 80 mg 02/29/24 21:00 03/02/24 21:29 Atorvastatin 40 Mg Tablet PO 80 mg HS DARREN Administration Calcium Carbonate 500 mg 02/29/24 09:00 03/03/24 08:00 Calcium/Vitamin D 500 Mg/5 Mcg (200 I.U.) Tablet PO 500 mg BID DARREN Administration Hydrocortisone Sodium Succinate 100 mg 02/29/24 06:00 03/03/24 05:49 Hydrocortisone Sodium Succinate 100 Mg/2 Ml Vial IV PUSH 100 mg Q8HR DARREN Administration Ceftriaxone Sodium 2 gm in 100 mls @ 200 m
[2024-03-03] MEDS: cefTRIAXone 2 GM/NS 100 ML 2 GM/100 ML BAG IVPB (11:03)
--- NOTE | 2024-03-03 13:15 | PM.IMPN ---
Progress Note: A&P Assessment and Plan (1) Septic shock: Code(s): A41.9 - Sepsis, unspecified organism; R65.21 - Severe sepsis with septic shock Status: Acute Assessment and Plan: Patient presents with abd pain, urinary frequency, and dysuria and found to have septic shock secondary to obstructive stone and UTI BC and UC are positive for EColi Rpt bc and uc today Continue iv rocephin Pt is on midodrine bp is better today, pt always has a low bp even at home Encourage fluids Watch wcc Dc steroids Pt can dc in 2-3 days time will need to follow with urology for stone removal (2) Acute kidney injury: Code(s): N17.9 - Acute kidney failure, unspecified Status: Acute Assessment and Plan: Cr 1.8 on admission. No old labs to review. [place]ISON secondary to obstructive kidney stone, hydronephrosis, sepsis and shock. pt is sp fluids Creatinine has improved to 1.0 (3) Hydronephrosis with renal and ureteral calculous obstruction: Code(s): N13.2 - Hydronephrosis with renal and ureteral calculous obstruction Status: Acute Assessment and Plan: On admission, CT scan of the abdomen and pelvis showing a 3 mm stone at left ureterovesicular junction with mild left hydronephrosis and hydroureter. 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 Echo showing Normal LV size and function (EF 60-65%) with grade IV diastolic fxn, moderate MR and moderate TR with mild pHTN. Cardiology consulted off fluids now (5) Transaminitis: Code(s): R74.01 - Elevation of levels of liver transaminase levels Status: Acute Assessment and Plan: AST and LAT mildly elevated. [place] secondary to shock liver. and history of amylodosis (6) Metabolic acidosis: Code(s): E87.20 - Acidosis, unspecified Status: Acute Assessment and Plan: resolved Serum bicarb dropped to 13 with normal AG. Was treated with bicarb infusion Acidosis better. relate to [place]ISON (7) Atrial fibrillation: Code(s): I48.91 - Unspecified atrial fibrillation Status: Acute Assessment and Plan: Patient has history of AFib status post ablation. She maintains NSR by tele. Continue amiodarone and Eliquis pt sees Electrophysiology MD in [place] (8) Thrombocytopenia: Code(s): D69.6 - Thrombocytopenia, unspecified Status: Acute Assessment and Plan: Plt count dropped to 45K. [place] related to sepsis. Not on Lovenox or Heparin. watch plts Subjective Date/time seen: 03/03/24 13:15 Interval history: 68yo female with amyloidosis, Afib s/p ablation, CVA, and CHF originally presenting to [facility] with nausea, suprapubic pain radiating around to her left side, urinary frequency, and dysuria. Pt is sp S/p cystoscopy, left retrograde pyelogram, and left ureteral stent placement on 02/28/2024. Pt will need stone management following resolution of acute infection Pt denies any complaints wcc still running high Dc steroids Watch wcc Continue iv abx Repeat bc and uc today Continue midodrine on the floor encourage oral fluids Await improvement in wcc and dc in 2-3 days time Review of Systems Review of Systems: Pt feels better no specific complaints Exam Narrative: Generally : chronically ill with crackled lips and skin and rough tongue Neck - Rt IJ TLC secured. Chest - clear CV - RRR S1/S2. Abd - Soft, ND Back - no CVA tenderness. Ext - trace pedal edema Neuro - Alert and appropriate Psych - Nml mood and affect Skin - Warm and dry Objective Data Vital Signs Vital Signs: Vital Signs -
--- NOTE | 2024-03-03 13:27 | PCPTNOTE ---
attempted PT eval, pt would not open eyes to loud verbal stimulus and covers face with blanket, will follow
[2024-03-03 16:00] VITALS: BP 112/61; PULSE 65; RESP 20; TEMP 36.3; O2SAT 94
[2024-03-03] MEDS: ATORVASTATIN 40 MG TABLET 80 MG PO (20:27)
[2024-03-03 20:43] VITALS: BP 110/69; PULSE 61; RESP 16; TEMP 36.8; O2SAT 93
[2024-03-04 05:22] LABS: Basophils Absolute Auto 0.1 K/mm3 (0.0-0.1); Basophils Percent Auto 0.5 % (0.2-1.2); Eosinophils Percent Auto 0.1 % (0-4.4); Hematocrit 33.6 % (37.0-47.0); Hemoglobin 11.1 g/dL (12.0-15.0); Immature Granulocyte Absolute 0.32 K/mm3 (0.00-0.031); Immature Granulocyte Percent A 1.7 % (0-0.5); Lymphocytes Percent Auto 5.4 % (18.3-44.2); Mean Corpuscular Volume 96.8 fl (80-100); Mean Platelet Volume 11.7 fl (7.4-10.4); Monocytes Absolute Auto 1.8 K/mm3 (0.1-0.6); Monocytes Percent Auto 9.7 % (2.6-8.5); Neutrophils Absolute Auto 15.4 K/mm3 (1.3-6.7); Neutrophils Percent Auto 82.6 % (45.5-73.1); Platelet Count Result 60 k/mm3 (150-375); Red Blood Count 3.47 M/mm3 (4.2-5.4); Red Cell Distribution Width 15.9 % (11.5-14.5); White Blood Count 18.6 K/mm3 (4.5-10.0)
[2024-03-04 05:24] VITALS: BP 109/52; PULSE 64; RESP 14; TEMP 36.6; O2SAT 94
[2024-03-04 05:31] LABS: Alanine Aminotransferase 55 U/L (6-35); Alkaline Phosphatase 120 U/L (38-126); Anion Gap 4 mmol/L (4-12); Aspartate Amino Transferase 35 U/L (14-36); Bilirubin,Total 0.9 mg/dL (0.2-1.3); Blood Urea Nitrogen 32 mg/dL (7-17); Calcium 8.6 mg/dL (8.4-10.2); Carbon Dioxide 27 mmol/L (22-30); Chloride 108 mmol/L (98-107); Estimated CRCL calculation 39 ml/min; Estimated Glomerular Filt Rate 50; Glucose 68 mg/dL (65-110); Magnesium 2.1 mg/dL (1.6-2.3); Phosphorus 2.1 mg/dL (2.5-4.5); Potassium 3.4 mmol/L (3.4-5.0); Sodium 139 mmol/L (137-145)
[2024-03-04 05:46] LABS: Anisocytosis 1+; Ovalocytes 1+; Platelet Estimate Decreased (Adequate); Schistocytes None Seen
[2024-03-04 08:30] VITALS: BP 114/48; PULSE 61; RESP 14; TEMP 36.9; O2SAT 93
[2024-03-04 08:49] VITALS: BP 135/58; PULSE 70; O2SAT 96
[2024-03-04 08:50] VITALS: PULSE 70
[2024-03-04] MEDS: MIDODRINE HCL 10 MG TABLET PO ×2 (08:50→12:28)
[2024-03-04] MEDS: AMIODARONE HCL 200 MG TABLET PO (08:50)
[2024-03-04] MEDS: CALCIUM/VITAMIN D 500 MG/5 MCG (200 I.U.) TABLET PO ×2 (08:50→17:03)
[2024-03-04] MEDS: ACETAMINOPHEN 325 MG TABLET 650 MG PO ×2 (08:50→20:31)
--- NOTE | 2024-03-04 09:17 | PM.IMPN ---
Progress Note: A&P Assessment and Plan (1) Septic shock: Code(s): A41.9 - Sepsis, unspecified organism; R65.21 - Severe sepsis with septic shock Status: Acute Assessment and Plan: Patient presents with abd pain, urinary frequency, and dysuria and found to have septic shock secondary to obstructive stone and UTI BC and UC are positive for EColi Rpt bc and uc today Continue iv rocephin Pt is on midodrine bp is better today, pt always has a low bp even at home Encourage fluids Watch wcc Dc steroids Pt can dc in 2-3 days time will need to follow with urology for stone removal (2) Acute kidney injury: Code(s): N17.9 - Acute kidney failure, unspecified Status: Acute Assessment and Plan: Cr 1.8 on admission. No old labs to review. [place]ISON secondary to obstructive kidney stone, hydronephrosis, sepsis and shock. pt is sp fluids Creatinine has improved to 1.0 (3) Hydronephrosis with renal and ureteral calculous obstruction: Code(s): N13.2 - Hydronephrosis with renal and ureteral calculous obstruction Status: Acute Assessment and Plan: On admission, CT scan of the abdomen and pelvis showing a 3 mm stone at left ureterovesicular junction with mild left hydronephrosis and hydroureter. 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 Echo showing Normal LV size and function (EF 60-65%) with grade IV diastolic fxn, moderate MR and moderate TR with mild pHTN. Cardiology consulted off fluids now (5) Transaminitis: Code(s): R74.01 - Elevation of levels of liver transaminase levels Status: Acute Assessment and Plan: AST and LAT mildly elevated. [place] secondary to shock liver. and history of amylodosis (6) Metabolic acidosis: Code(s): E87.20 - Acidosis, unspecified Status: Acute Assessment and Plan: resolved Serum bicarb dropped to 13 with normal AG. Was treated with bicarb infusion Acidosis better. relate to [place] (7) Atrial fibrillation: Code(s): I48.91 - Unspecified atrial fibrillation Status: Acute Assessment and Plan: Patient has history of AFib status post ablation. She maintains NSR by tele. Continue amiodarone and Elijayda pt sees Electrophysiology MD in [place] (8) Thrombocytopenia: Code(s): D69.6 - Thrombocytopenia, unspecified Status: Acute Assessment and Plan: Plt count dropped to 45K. [place] related to sepsis. Not on Lovenox or Heparin. watch plts Plan This is a 68yo female with amyloidosis, Afib s/p ablation, CVA, and CHF originally presenting to [facility] with nausea, suprapubic pain radiating around to her left side, urinary frequency, and dysuria. Workup in the hospital included a CT abdomen pelvis which showed 3 mm stone at the left ureteral vesicular junction with mild left hydronephrosis and hydroureter. WBC 6.7 hemoglobin 14.6 creatinine 1.8 lactic acid of 3.3 alkaline phosphatase 210 lipase 48. Urinalysis was obtained which showed cloudy appearance 2+ urine protein 3+ urine glucose trace urine [place] tone trace urine blood positive nitrate 11-20 urine RBC 1+ urine bacteria and many urine squamous epithelial cells. Urine and blood culture were obtained. She received IV fluids and ciprofloxacin at the outside facility. Transferred [facility] for further workup. Upon arrival to [place] patient was noted to have 103.2 temperature respiratory rate 29 heart rate on 0 3 altered sensorium. Lactic acid increased to 5. AST 389 ALT 144. ProBNP 4970. She was admitted to ICU and diagnosed septic shock. Was placed on vasopressors. Since
--- NOTE | 2024-03-04 09:24 | PCPTNOTE ---
attempted PT juliana, pt states she has been totally independent in the room with gait/transfers/self care, does states not want physical therapy service, D/Cing orders
[2024-03-04] MEDS: cefTRIAXone 2 GM/NS 100 ML 2 GM/100 ML BAG IVPB (11:11)
[2024-03-04 14:00] VITALS: BP 114/48; PULSE 61; RESP 16; TEMP 36.9; O2SAT 93
[2024-03-04] MEDS: MIDODRINE HCL 2.5 MG TABLET 5 MG PO (17:03)
[2024-03-04] MEDS: NEOMYCIN/POLYMYXIN/BACITRACIN OINTMENT PACKET 1 PACKET (17:04)
[2024-03-04] MEDS: ATORVASTATIN 40 MG TABLET 80 MG PO (20:31)
[2024-03-04 21:14] VITALS: BP 127/84; PULSE 74; RESP 14; TEMP 37.2; O2SAT 91
[2024-03-05] MEDS: ACETAMINOPHEN 325 MG TABLET 650 MG PO ×3 (05:39→20:02)
[2024-03-05 06:00] VITALS: BP 137/60; PULSE 64; RESP 18; TEMP 37.1; O2SAT 96
[2024-03-05 06:21] LABS: Basophils Absolute Auto 0.1 K/mm3 (0.0-0.1); Basophils Percent Auto 0.5 % (0.2-1.2); Eosinophils Absolute Auto 0.2 K/mm3 (0-0.3); Eosinophils Percent Auto 1.3 % (0-4.4); Hematocrit 33.3 % (37.0-47.0); Hemoglobin 11.1 g/dL (12.0-15.0); Immature Granulocyte Absolute 0.54 K/mm3 (0.00-0.031); Immature Granulocyte Percent A 4.1 % (0-0.5); Immature Platelet Fraction Pct 8.4 % (0.9-11.2); Lymphocytes Absolute Auto 0.81 K/mm3 (0.9-3.2); Lymphocytes Percent Auto 6.2 % (18.3-44.2); Mean Corpuscular HGB Conc 33.3 g/dl (32-36); Mean Corpuscular Hemoglobin 32.1 pg (26-34); Mean Corpuscular Volume 96.2 fl (80-100); Mean Platelet Volume 12.1 fl (7.4-10.4); Monocytes Absolute Auto 1.3 K/mm3 (0.1-0.6); Monocytes Percent Auto 9.6 % (2.6-8.5); Neutrophils Absolute Auto 10.3 K/mm3 (1.3-6.7); Neutrophils Percent Auto 78.3 % (45.5-73.1); Platelet Count Result 67 k/mm3 (150-375); Red Blood Count 3.46 M/mm3 (4.2-5.4); Red Cell Distribution Width 15.6 % (11.5-14.5); White Blood Count 13.1 K/mm3 (4.5-10.0)
[2024-03-05 06:48] LABS: Alanine Aminotransferase 64 U/L (6-35); Albumin Level 2.8 g/dL (3.5-5.1); Alkaline Phosphatase 131 U/L (38-126); Anion Gap 4 mmol/L (4-12); Aspartate Amino Transferase 40 U/L (14-36); Bilirubin,Total 1.4 mg/dL (0.2-1.3); Blood Urea Nitrogen 25 mg/dL (7-17); Carbon Dioxide 28 mmol/L (22-30); Chloride 106 mmol/L (98-107); Estimated CRCL calculation 39 ml/min; Estimated Glomerular Filt Rate 50; Glucose 66 mg/dL (65-110); Phosphorus 2.3 mg/dL (2.5-4.5); Potassium 3.7 mmol/L (3.4-5.0); Sodium 138 mmol/L (137-145)
[2024-03-05 09:11] VITALS: PULSE 65
[2024-03-05] MEDS: AMIODARONE HCL 200 MG TABLET PO (09:11)
[2024-03-05] MEDS: MIDODRINE HCL 2.5 MG TABLET 5 MG PO ×2 (09:11→12:22)
[2024-03-05] MEDS: CALCIUM/VITAMIN D 500 MG/5 MCG (200 I.U.) TABLET PO ×2 (09:11→17:07)
[2024-03-05] MEDS: POTASSIUM PHOS/SODIUM PHOS 250 MG TABLET PO (09:12)
[2024-03-05] MEDS: cefTRIAXone 2 GM/NS 100 ML 2 GM/100 ML BAG IVPB (12:24)
--- NOTE | 2024-03-05 13:41 | PM.IMPN ---
Progress Note: A&P Assessment and Plan (1) Septic shock: Code(s): A41.9 - Sepsis, unspecified organism; R65.21 - Severe sepsis with septic shock Status: Acute (2) Acute kidney injury: Code(s): N17.9 - Acute kidney failure, unspecified Status: Acute (3) Hydronephrosis with renal and ureteral calculous obstruction: Code(s): N13.2 - Hydronephrosis with renal and ureteral calculous obstruction Status: Acute Assessment and Plan: (4) CHF (congestive heart failure): Qualifiers: Heart failure type: diastolic Code(s): I50.9 - Heart failure, unspecified Status: Acute Assessment and Plan: (5) Transaminitis: Code(s): R74.01 - Elevation of levels of liver transaminase levels Status: Acute (6) Metabolic acidosis: Code(s): E87.20 - Acidosis, unspecified Status: Acute Assessment and Plan: (7) Atrial fibrillation: Code(s): I48.91 - Unspecified atrial fibrillation Status: Acute (8) Thrombocytopenia: Code(s): D69.6 - Thrombocytopenia, unspecified Status: Acute Plan This is a 68yo female with amyloidosis, Afib s/p ablation, CVA, and CHF originally presenting to [facility] with nausea, suprapubic pain radiating around to her left side, urinary frequency, and dysuria. Workup in the hospital included a CT abdomen pelvis which showed 3 mm stone at the left ureteral vesicular junction with mild left hydronephrosis and hydroureter. WBC 6.7 hemoglobin 14.6 creatinine 1.8 lactic acid of 3.3 alkaline phosphatase 210 lipase 48. Urinalysis was obtained which showed cloudy appearance 2+ urine protein 3+ urine glucose trace urine [place] tone trace urine blood positive nitrate 11-20 urine RBC 1+ urine bacteria and many urine squamous epithelial cells. Urine and blood culture were obtained. She received IV fluids and ciprofloxacin at the outside facility. Transferred [facility] for further workup. Upon arrival to [place] patient was noted to have 103.2 temperature respiratory rate 29 heart rate on 0 3 altered sensorium. Lactic acid increased to 5. AST 389 ALT 144. ProBNP 4970. She was admitted to ICU and diagnosed septic shock. Was placed on vasopressors. Since then this has resolved she has been moved out of the ICU. She was bacteremic with E coli. Her antibiotics switched to ceftriaxone 2 g IV daily. Started on 02/28/2024. Effective day 7 today. Repeat blood culture on 03/03/2024 no growth to date Urine culture growing E coli as well. Echocardiogram EF 60-65% grade 4 diastolic dysfunction. Trace AR moderate MR moderate TR mild pulmonary hypertension trace DE. Interaction with the levofloxacin and hence fluoroquinolone is not an option. Leukocytosis improving Continue trend leukocytosis. Continue ceftriaxone until tomorrow to conclude course On midodrine will to will slowly taper down. Will stop midodrine today Pt will need stone management following resolution of acute infection Subjective Date/time seen: 03/05/24 13:41 Interval history: No overnight events reported. No new complaints Review of Systems Review of Systems: All systems reviewed & are unremarkable except as noted in HPI and below Exam Narrative: Generally : chronically ill with crackled lips and skin and rough tongue Neck - Rt IJ TLC secured. Chest - clear to auscultation, no respiratory distress CV - RRR S1/S2. Abd - Soft, ND Back - no CVA tenderness. Ext - trace pedal edema Neuro - Alert and appropriate Psych - Nml mood and affect Skin - Warm and dry Objective Data Vital Signs Vital Signs: Vital Signs - 24 hr 03/04/24 14:00 03/04/24 21:14 03/04/24 20:00 Temperature 98.4 F 99.0 F Pulse Rate 61 74 Respiratory Rate 16 14 Blood Pressure 114/48 L 127/84 Pulse Oximetry 93 91 Oxygen Delivery Room Air 03/05/24 06:00 03/05/24 09:11 03/05/24 08:00 Temperat
[2024-03-05 15:21] VITALS: BP 117/51; PULSE 67; RESP 16; TEMP 37.2; O2SAT 97
[2024-03-05] MEDS: ATORVASTATIN 40 MG TABLET 80 MG PO (20:03)
[2024-03-05 20:07] VITALS: BP 121/55; PULSE 66; RESP 16; TEMP 37.1; O2SAT 98
[2024-03-06 05:41] VITALS: BP 130/72; PULSE 75; RESP 18; TEMP 36.7; O2SAT 99
[2024-03-06 06:29] LABS: Basophils Percent Auto 0.2 % (0.2-1.2); Eosinophils Absolute Auto 0.2 K/mm3 (0-0.3); Eosinophils Percent Auto 1.6 % (0-4.4); Hemoglobin 11.3 g/dL (12.0-15.0); Immature Granulocyte Absolute 0.44 K/mm3 (0.00-0.031); Immature Granulocyte Percent A 3.6 % (0-0.5); Immature Platelet Fraction Pct 7.9 % (0.9-11.2); Lymphocytes Absolute Auto 0.66 K/mm3 (0.9-3.2); Lymphocytes Percent Auto 5.4 % (18.3-44.2); Mean Corpuscular HGB Conc 33.2 g/dl (32-36); Mean Corpuscular Hemoglobin 32.4 pg (26-34); Mean Corpuscular Volume 97.4 fl (80-100); Mean Platelet Volume 11.6 fl (7.4-10.4); Monocytes Absolute Auto 0.6 K/mm3 (0.1-0.6); Monocytes Percent Auto 5.2 % (2.6-8.5); Neutrophils Absolute Auto 10.3 K/mm3 (1.3-6.7); Platelet Count Result 93 k/mm3 (150-375); Red Blood Count 3.49 M/mm3 (4.2-5.4); Red Cell Distribution Width 15.4 % (11.5-14.5); White Blood Count 12.2 K/mm3 (4.5-10.0)
[2024-03-06 06:46] LABS: Anion Gap 4 mmol/L (4-12); Blood Urea Nitrogen 20 mg/dL (7-17); Calcium 8.2 mg/dL (8.4-10.2); Carbon Dioxide 26 mmol/L (22-30); Chloride 108 mmol/L (98-107); Estimated CRCL calculation 52 ml/min; Estimated Glomerular Filt Rate > 60; Glucose 72 mg/dL (65-110); Sodium 138 mmol/L (137-145)
[2024-03-06 06:47] LABS: Alanine Aminotransferase 49 U/L (6-35); Alkaline Phosphatase 123 U/L (38-126); Aspartate Amino Transferase 32 U/L (14-36); Magnesium 1.9 mg/dL (1.6-2.3)
[2024-03-06] MEDS: ACETAMINOPHEN 325 MG TABLET 650 MG PO (09:51)
[2024-03-06 09:53] VITALS: PULSE 69
[2024-03-06] MEDS: AMIODARONE HCL 200 MG TABLET PO (09:53)
[2024-03-06] MEDS: CALCIUM/VITAMIN D 500 MG/5 MCG (200 I.U.) TABLET PO (09:53)
[2024-03-06] MEDS: cefTRIAXone 2 GM/NS 100 ML 2 GM/100 ML BAG IVPB (09:56)
--- NOTE | 2024-03-06 11:28 | ECG_ITS ---
Test Date: 2024-03-06 11:50:46 Measurements Intervals [place] Rate: 80 P: 37 AL: 174 QRS: -1 QRSD: 103 T: -5 QT: 401 QTc: 463 Interpretive Statements SINUS RHYTHM ANTEROSEPTAL MYOCARDIAL INFARCTION [40+ ms Q WAVE IN V1-V4], OF INDETERMINATE AGE NONSPECIFIC T-WAVE ABNORMALITY ABNORMAL ECG No previous ECG available for comparison Electronically Signed On 03-07-2024 10:37:17 CDT by Koko Zuñiga M.D.
--- NOTE | 2024-03-06 11:32 | PM.DS ---
DS: Admitting Diagnosis Discharge Date 03/06/2024 Admitting Diagnosis Urosepsis DS: Discharge Diagnosis Discharge Diagnosis (1) Septic shock: Code(s): A41.9 - Sepsis, unspecified organism; R65.21 - Severe sepsis with septic shock Status: Acute (2) Acute kidney injury: Code(s): N17.9 - Acute kidney failure, unspecified Status: Acute (3) Hydronephrosis with renal and ureteral calculous obstruction: Code(s): N13.2 - Hydronephrosis with renal and ureteral calculous obstruction Status: Acute (4) CHF (congestive heart failure): Qualifiers: Heart failure type: diastolic Code(s): I50.9 - Heart failure, unspecified Status: Acute (5) Transaminitis: Code(s): R74.01 - Elevation of levels of liver transaminase levels Status: Acute (6) Metabolic acidosis: Code(s): E87.20 - Acidosis, unspecified Status: Acute (7) Atrial fibrillation: Code(s): I48.91 - Unspecified atrial fibrillation Status: Acute (8) Thrombocytopenia: Code(s): D69.6 - Thrombocytopenia, unspecified Status: Acute DS: Summary Hospital Course Hospital Course: This is a 68 yo female with amyloidosis, Afib s/p ablation, CVA, and CHF originally presenting to [facility] with nausea, suprapubic pain radiating around to her left side, urinary frequency, and dysuria. Workup in the hospital included a CT abdomen pelvis which showed 3 mm stone at the left ureteral vesicular junction with mild left hydronephrosis and hydroureter. WBC 6.7 hemoglobin 14.6 creatinine 1.8 lactic acid of 3.3 alkaline phosphatase 210 lipase 48. Urinalysis was obtained which showed cloudy appearance 2+ urine protein 3+ urine glucose trace urine [place] tone trace urine blood positive nitrate 11-20 urine RBC 1+ urine bacteria and many urine squamous epithelial cells. Urine and blood culture were obtained. She received IV fluids and ciprofloxacin at the outside facility. Transferred [facility] for further workup. Upon arrival to [place] patient was noted to have 103.2 temperature respiratory rate 29 heart rate on 0 3 altered sensorium. Lactic acid increased to 5. AST 389 ALT 144. ProBNP 4970. She was admitted to ICU and diagnosed septic shock. Was placed on vasopressors. Since then this has resolved she has been moved out of the ICU. She was bacteremic with E coli. Her antibiotics switched to ceftriaxone 2 g IV daily. Started on 02/28/2024. Effective day 7 today. Repeat blood culture on 03/03/2024 no growth to date Urine culture growing E coli as well. Echocardiogram EF 60-65% grade 4 diastolic dysfunction. Trace AR moderate MR moderate TR mild pulmonary hypertension trace [place]. Leukocytosis improving down to 12 K at discharge Continue trend leukocytosis. Completed 7 day course of ceftriaxone during hospital stay. Will give 3 more days of levofloxacin at discharge On midodrine will to will slowly taper down. [place] off midodrine Pt will need stone management following resolution of acute infection Time Spent with Patient Time attestation: Total time spent providing and/or coordinating discharge services: 35 minutes Exam Narrative: Generally : chronically ill not in acute distress Neck - Rt IJ TLC secured. Chest - clear to auscultation, no respiratory distress CV - RRR S1/S2. Abd - Soft, ND Back - no CVA tenderness. Ext - trace pedal edema Neuro - Alert and appropriate Psych - Nml mood and affect Skin - Warm and dry DS: Data Data Completed and Pending Labs on day of discharge: Labs from last 24 hours 03/06/24 06:12 WBC 12.2 H RBC 3.49 L Hgb 11.3 L Hct 34.0 L MCV 97.4 MCH 32.4 MCHC 33.2 RDW 15.4 H Plt Count 93 L MPV 11.6 H Immature Gran % (Auto) 3.6 H Neut % (Auto) 84.0 H Lymph % (Auto) 5.4 L [place] % (Auto) 5.2 Eos % (Auto) 1.6 Baso % (Auto) 0.2 Lymph # (Auto) 0.66 L [place] # (Auto) 0.6 Eos # (Auto) 0.2
== END 2024-03-06 14:20 | disposition home or self-care (01) | DRG 853 ==
LOC: ANHICU 03-02 09:30 → ANH3MEDSUR 03-02 09:36 → ANHICU 03-02 09:37 → ANH3MEDSUR 03-02 17:04
PROVIDERS: Internal Medicine; Nurse Practitioner Acute Care; Urology; Admitting Provider Family Medicine; PCP Emergency Medicine; Visit Provider Internal Medicine
PROC: 0T778DZ Dilation of Left Ureter with Intraluminal Device, Via Natural or Artificial Opening Endoscopic (ICD-10-PCS; CPT 52352; principal; 2024-02-28 20:00)
DX: A41.51 Sepsis due to Escherichia coli [E. coli] (principal); R65.21 Severe sepsis with septic shock; N13.2 Hydronephrosis with renal and ureteral calculous obstruction; N39.0 Urinary tract infection, site not specified; N17.9 Acute kidney failure, unspecified; D61.818 Other pancytopenia; I50.32 Chronic diastolic (congestive) heart failure; I42.9 Cardiomyopathy, unspecified; E85.81 Light chain (AL) amyloidosis; B96.20 Unspecified Escherichia coli [E. coli] as the cause of diseases classified elsewhere; D69.6 Thrombocytopenia, unspecified; I11.0 Hypertensive heart disease with heart failure; I08.1 Rheumatic disorders of both mitral and tricuspid valves; I48.91 Unspecified atrial fibrillation; R74.01 Elevation of levels of liver transaminase levels; Z86.73 Personal history of transient ischemic attack (TIA), and cerebral infarction without residual deficits; Z86.79 Personal history of other diseases of the circulatory system; Z92.21 Personal history of antineoplastic chemotherapy; Z79.01 Long term (current) use of anticoagulants
CPT/HCPCS: 36415; 74420; 80053; 82550; 82570; 83605; 83735; 83880; 84100; 84300; 85025; 85055; 87040; 87086; 87641; 93005; 93306; 97165; A9270; C1751; C1769; C2617; J0613; J0696; J1720; J2003; J2185; J2405; J2704; J7030; J7120; P9047; Q9966

== ENCOUNTER 2024-03-29 00:52 | Day surgery (SDC) | payer MEDICARE, SELFPAY ==
--- NOTE | 2024-03-17 14:04 | PC.NURSE ---
Report to the Outpatient Waiting Room, entrance under the green pavilion located off [facility], at time _07:30am__on date _03/29/24 . Planned Procedure Time: __09:30am .? Time changes happen often and if your time is changed the preop area will call you the afternoon before. - You and your visitor will be asked to self-screen and do not enter if you have any COVID symptoms. Please call surgeon if you need to reschedule. - A mask is optional within the hospital at this time. Patients may have clear liquids (water, carbonated beverages, clear teas, apple juice) until 3 hours prior to surgery with a maximum of 20 ounces. - No food from midnight until time of surgery and no smoking Take only the following medications with a SIP of water on the morning of surgery: __Amiodarone, Gabapentin, and Acyclovir DO NOT STOP ANY OF YOUR OTHER PRESCRIPTION MEDICATIONS PRIOR TO SURGERY EXCEPT THE FOLLOWING Medications to discontinue per physician ____Pt Rommel is on hold presently per herself, and she is staying off it per her request till appt in Apr. Hold all vitamins and supplements for 3 days prior to surgery per Anesthesia. Date to take last dose is 03/25/24 Please no make-up, nail ivorian, hairspray, perfume, deodorant, or body powder the day of surgery.? No jewelry (including any body piercings) or valuables the day of surgery, leave them at home.? Please take a shower or bath the night before, or the morning of, surgery with an antibacterial soap.? Wear comfortable, loose fitting clothing.? - Jewelry must be removed prior to entering the operating room.? Rings and piercings that are not removed may be cut off. - The hospital will not accept responsibility for valuables.? - Please leave all valuables, including medications, at home the day of surgery. If you are going home after surgery, a licensed cement mixer driver must drive you home.? - NO public transportation without another adult if you receive anesthesia. - We recommend that an adult stay with you for 24 hours following discharge. - We also recommend that you do not drive, make important decision, drink alcoholic beverages, or take any drugs that were not prescribed by your health care provider for at least 24 hours after your discharge time. Follow any additional instructions given to you from your surgeon. Telephone instructions given to __Patient and asked if any additional questions and then verbalized understanding. Patient advised to call surgeon office or pre surgery nurse liaison [phone] if any additional questions.
[2024-03-17 14:14] VITALS: BMI 23.1
--- NOTE | 2024-03-28 16:12 | P.PNAN_ITS ---
Anes - Initial Pre Proc Eval Procedure: Operation Date: 03/29/24 09:30 Proposed Procedures p Cystoscopy, Left Ureteroscopy, Possible Left Retrograde Pyelogram, Possible Left Stone Extraction, Left Stent Exchange, Possible Holmium Laser - Jonel Martínez MD Date/Time: 03/28/24 16:12 Surgeon: Jonel Martínez MD Pre Op Diagnosis: left renal and ureteral kidney stone Patient Data Age: 68 Gender: F Height: 1.63 m Weight: 61 kg Allergies Allergy/AdvReac Type Severity Reaction Status Date / Time No Known Allergies Allergy Verified 02/28/24 19:19 Home Medications Medication Instructions Recorded Confirmed Type acyclovir 400 mg tablet 400 mg PO TID 02/28/24 03/17/24 History amiodarone 200 mg tablet 200 mg PO DAILY 02/28/24 03/17/24 History atorvastatin 80 mg tablet 80 mg PO HS 02/28/24 03/17/24 History calcium 600 mg (as 1 tablet PO BID 02/28/24 03/17/24 History carbonate)-vitamin D3 20 mcg (800 unit) tablet furosemide 20 mg tablet 20 mg PO DAILY PRN swelling or SOB 02/28/24 03/17/24 History gabapentin 100 mg capsule 100 - 200 mg PO BID 02/28/24 03/17/24 History Patient hx anesthesia problems: none Family hx anesthesia problems: none Results Review: All pre-operative results and documents have been reviewed as part of the pre- operative evaluation. [facility] Past Medical History Medical History Amyloidosis Atrial fibrillation Status post ablation after multiple failed cardioversion CHF (congestive heart failure) CVA (cerebral vascular accident) Ureterolithiasis Surgical History Surgical History History of radiofrequency ablation procedure for cardiac arrhythmia Social History Social History Social History: Denies smoking alcohol or drug use. She is a nurse by profession. Smoking packs per day: 0.5 Smoking cigarettes per day: 10.0 Years smoked: 5 Smoking pack-years: 2.50 Smoking status: Former smoker Tobacco type: cigarettes Second hand tobacco smoke exposure: Yes Smoking end date: 01/17/20 Alcohol intake: unknown Substance use: never Do You Feel Safe in your Home?: Yes Lack of Transportation: No Lack of Food: Never True Current Housing: Decline to Answer Concerned About Future Housing: No Difficulty Paying Gas/Electric Bills: No Difficulty Paying for Meds: No Currently Unemployed: No Education: Associate Degree Difficulty w/ Childcare or Family Care: No Spiritual care concerns: No Anes - Eval Final PreProcedure Day of Procedure 03/28/24 16:12 Patient weight: normal ASA classification: III Emergent: no Anesthetic plan: proceed Anesthesia type and monitoring: general LMA and standard monitoring Results Review: All pre-operative results and documents have been reviewed as part of the pre- operative evaluation. Informed Consent: The patient's anesthetic plan and its attendant risks and benefits were discussed with the patient/family/POA. Questions were solicited and answers provided to the satisfaction of the patient/family/POA.
[2024-03-29] VITALS (8 sets, daily range): BP systolic 100–122; BP diastolic 41–61; PULSE 60–70; RESP 12–20; TEMP 36.1–36.4; O2SAT 100
--- NOTE | ~2024-03-29 | XR_ITS ---
EXAMINATION: XR fluoroscopy no charge DATE: 03/29/2024 11:35 INDICATION: Ureteral stent removal TECHNIQUE: Single fluoroscopic image of the pelvis and lower abdomen was obtained during procedure pe rformed by Dr. Martínez. Radiologist was not present for the imaging or procedure. The amount of fluo roscopy time used during this procedure was 0.5 minutes. COMPARISON: None. FINDINGS: Ureteral stent is seen extending along the left ureter with proximal tip collimated beyond the cephal ad margin of the [id number] and the caudal aspect of the stent extending into the urethra and hang imated off the inferior margin of the [id number]. IMPRESSION: 1. Fluoroscopy utilized during urologic procedure. See procedure note for further detail. Reviewed, dictated and finalized at location B. [facility] [employer]PERINTENDENT IMPRESSION: 1. Fluoroscopy utilized during urologic procedure. See procedure note for furth er detail.
[2024-03-29] MEDS: LACTATED RINGERS 1,000 ML 30 ML IV CONT ×2 (08:00→11:38)
--- NOTE | 2024-03-29 08:10 | P.PNAN_ITS ---
Anes - Initial Pre Proc Eval Procedure: Operation Date: 03/29/24 09:30 Proposed Procedures p Cystoscopy, Left Ureteroscopy, Possible Left Retrograde Pyelogram, Possible Left Stone Extraction, Left Stent Exchange, Possible Holmium Laser - Jonel Martínez MD Date/Time: 03/29/24 08:10 Surgeon: Jonel Martínez MD Pre Op Diagnosis: left renal and ureteral kidney stone Patient Data Age: 68 Gender: F Height: 1.63 m Weight: 61 kg Allergies Allergy/AdvReac Type Severity Reaction Status Date / Time No Known Allergies Allergy Verified 02/28/24 19:19 Home Medications Medication Instructions Recorded Confirmed Type acyclovir 400 mg tablet 400 mg PO TID 02/28/24 03/17/24 History amiodarone 200 mg tablet 200 mg PO DAILY 02/28/24 03/17/24 History atorvastatin 80 mg tablet 80 mg PO HS 02/28/24 03/17/24 History calcium 600 mg (as 1 tablet PO BID 02/28/24 03/17/24 History carbonate)-vitamin D3 20 mcg (800 unit) tablet furosemide 20 mg tablet 20 mg PO DAILY PRN swelling or SOB 02/28/24 03/17/24 History gabapentin 100 mg capsule 100 - 200 mg PO BID 02/28/24 03/17/24 History Patient hx anesthesia problems: none Family hx anesthesia problems: none Results Review: All pre-operative results and documents have been reviewed as part of the pre- operative evaluation. ON LICENSE OF [facility] Past Medical History Medical History Amyloidosis Atrial fibrillation Status post ablation after multiple failed cardioversion CHF (congestive heart failure) CVA (cerebral vascular accident) Ureterolithiasis Surgical History Surgical History History of radiofrequency ablation procedure for cardiac arrhythmia Social History Social History Social History: Denies smoking alcohol or drug use. She is a nurse by profession. Smoking packs per day: 0.5 Smoking cigarettes per day: 10.0 Years smoked: 5 Smoking pack-years: 2.50 Smoking status: Former smoker Tobacco type: cigarettes Second hand tobacco smoke exposure: Yes Smoking end date: 01/17/20 Alcohol intake: unknown Substance use: never Do You Feel Safe in your Home?: Yes Lack of Transportation: No Lack of Food: Never True Current Housing: Decline to Answer Concerned About Future Housing: No Difficulty Paying Gas/Electric Bills: No Difficulty Paying for Meds: No Currently Unemployed: No Education: Associate Degree Difficulty w/ Childcare or Family Care: No Spiritual care concerns: No Anes - Eval Final PreProcedure Day of Procedure 03/29/24 08:10 Patient weight: normal Heart: regular rate and rhythm Lungs: clear to auscultation Airway: Mallampati scale class III and special considerations (Enlarged tongue noted secondary to amyloidosis. ) Neurological: alert and oriented Last oral intake: >/= 8 hours ASA classification: III Emergent: no Anesthetic plan: proceed Anesthesia type and monitoring: general LMA and standard monitoring Results Review: All pre-operative results and documents have been reviewed as part of the pre- operative evaluation. HTN, hyperlipidemia, hx of a fib s/p ablation, still on eliquis due to hx of CVA but held for 7 days. Amyloidosis, hx CHF w ECHO 2023 w LVEF 65% w gr 4 diastolic dysfunction. Informed Consent: The patient's anesthetic plan and its attendant risks and benefits were discussed with the patient/family/POA. Questions were solicited and answers provided to the satisfaction of the patient/family/POA.
--- NOTE | 2024-03-29 08:33 | PM.IMHP ---
H&P: HPI History of Present Illness Date/Time: 03/29/24 08:33 Chief Complaint: 3mm left uvj calculus Narrative: 68 yr old female with history of left stent placement for sepsis secondary to 3mm left uvj calculus. Presents for definitive treatment. Review of Systems Review of Systems: All systems reviewed & are unremarkable except as noted in HPI and below PMFSH Past Medical History Medical History Amyloidosis Atrial fibrillation Status post ablation after multiple failed cardioversion CHF (congestive heart failure) CVA (cerebral vascular accident) Ureterolithiasis Surgical History Surgical History History of radiofrequency ablation procedure for cardiac arrhythmia Social History Social History Social History: Denies smoking alcohol or drug use. She is a nurse by profession. Smoking packs per day: 0.5 Smoking cigarettes per day: 10.0 Years smoked: 5 Smoking pack-years: 2.50 Smoking status: Former smoker Tobacco type: cigarettes Second hand tobacco smoke exposure: Yes Smoking end date: 01/17/20 Alcohol intake: unknown Substance use: never Do You Feel Safe in your Home?: Yes Lack of Transportation: No Lack of Food: Never True Current Housing: Decline to Answer Concerned About Future Housing: No Difficulty Paying Gas/Electric Bills: No Difficulty Paying for Meds: No Currently Unemployed: No Education: Associate Degree Difficulty w/ Childcare or Family Care: No Spiritual care concerns: No Meds Home Medications and Allergies Home Medications Medication Instructions Recorded Confirmed Type acyclovir 400 mg tablet 400 mg PO TID 02/28/24 03/17/24 History amiodarone 200 mg tablet 200 mg PO DAILY 02/28/24 03/17/24 History atorvastatin 80 mg tablet 80 mg PO HS 02/28/24 03/17/24 History calcium 600 mg (as 1 tablet PO BID 02/28/24 03/17/24 History carbonate)-vitamin D3 20 mcg (800 unit) tablet furosemide 20 mg tablet 20 mg PO DAILY PRN swelling or SOB 02/28/24 03/17/24 History gabapentin 100 mg capsule 100 - 200 mg PO BID 02/28/24 03/17/24 History Allergies Allergy/AdvReac Type Severity Reaction Status Date / Time No Known Allergies Allergy Verified 02/28/24 19:19 Exam Const: General: cooperative, comfortable and no acute distress Resp: Effort & Inspection: normal respiratory effort Cardio: Rate: regular rate Rhythm: regular rhythm Assessment and Plan Assessment and plan (1) Left ureteral calculus: Code(s): N20.1 - Calculus of ureter Status: Acute Assessment and Plan: Proceed with cystoscopy, left retrograde, left ureteroscopy, left stone extraction, possible laser, stent placement.
--- NOTE | 2024-03-29 08:36 | WPDHPUPDATE1 ---
History and Physical Update Update Date/Time: 03/29/24 08:36 History and Physical has been reviewed, including an updated exam of the patient. There are NO changes in the patient's condition. Risks, benefits, and alternatives have been discussed and questions answered. Patient agrees to proceed with procedure.
--- NOTE | 2024-03-29 10:50 | SUR.PREOP ---
0930:PT MADE AWARE THAT CASE DELAY BY ABOUT 1HR. COMFORT MEASURES GIVEN.
[2024-03-29] MEDS: ceFAZolin 2 GM/D5W 50 ML 2 GM/50 ML BAG IVPB (11:07)
[2024-03-29] MEDS: LIDOCAINE HCL 2% GEL UROJET 10 ML PKG MUCOUS MEM (11:22)
--- NOTE | 2024-03-29 11:34 | P.OP_ITS ---
Procedure Note - Detailed Date of Procedure 03/29/24 Pre-op Diagnosis Left ureteral calculus 3 mm UVJ stone Post-op Diagnosis Other (Recent passage of stone) Procedure Performed Cystoscopy, left ureteroscopy, left stent removal Surgeon Jonel Martínez MD Anesthesia General Description of Procedure Patient was taken to the operative suite correctly identified. Once anesthesia was obtained she was placed in dorsal lithotomy position and prepped and draped usual sterile fashion. Twenty-two Kinyarwanda scope was inserted the bladder. The prior stent was retrieved a wire was placed through it. Rigid ureteral scope was then used to examine the distal ureter. No stone was visualized. A mini flexible ureteral scope was then inserted all the way up to the kidney. The entire kidney was visualized. No stones were seen. Due to very minimal manipulation the stent was not replaced. 2% viscous lidocaine inserted into urethra. This completes dictation. Please send a copy of op note to my office Estimated Blood Loss 0 Drains Yes Packing No Pathology None sent Complications No immediate complications Condition Stable Disposition PACU
== END 2024-03-29 13:07 | disposition home or self-care (01) ==
PROVIDERS: PCP Family Medicine; Visit Provider Urology
PROC: (CPT 52352; principal; 2024-03-29 09:30)
DX: N20.1 Calculus of ureter (principal); I50.9 Heart failure, unspecified; Z86.73 Personal history of transient ischemic attack (TIA), and cerebral infarction without residual deficits; Z87.891 Personal history of nicotine dependence
CPT/HCPCS: 52310; 99199; C1769; J0690; J1100; J1596; J2003; J2250; J2371; J2405; J2704; J3010; J7120